=== PATIENT | female | born 1995 | race African-American/Black ===

== ENCOUNTER 2017-09-17 05:58 | Emergency (ER) | payer OTHER ==
--- NOTE | 2017-09-17 06:42 | ED Physician Documentation ---
History of Present Illness - Stated complaint Stated Complaint: ABD CRAMPING - Chief complaint Chief Complaint: Abd Pain - Additonal information Additional information: 4-year-old female presents the emergency department with abdominal cramping. She is on day 4 of her menses and this morning woke from sleep with significant lower abdominal cramping which is not unusual for her, however today she felt shaky, dizzy and felt like her heart was racing. Review of Systems Constitutional: denies: Fever PD PAST MEDICAL HISTORY - Present Medications Home Medications: Ambulatory Orders Medication Instructions Recorded Confirmed No Known Home Medications [No 09/17/17 09/17/17 Known Home Medications] - Allergies Allergies/Adverse Reactions: Allergies Allergy/AdvReac Type Severity Reaction Status Date / Time No Known Drug Allergies Allergy Verified 09/17/17 06:03 PD ED PE NORMAL - Vitals Vital signs reviewed: Yes - General General: Alert and oriented X 3, No acute distress - Cardiac Cardiac: RRR, No murmur - Respiratory Respiratory: Clear bilaterally - Abdomen Abdomen: Normal bowel sounds, Soft, Non tender, Non distended, Other (mild suprapubic ttp ) - Female Female : Drilling Machine Operator present (Marguerite), Other (Mild bleeding in the vaginal vault, Bleeding from cervix, normal-appearing cervix and vagina.) - Derm Derm: Normal color, Warm and dry - Extremities Extremities: No deformity - Neuro Neuro: Alert and oriented X 3 - Psych Psych: Normal mood, Normal affect Results - Vitals Vitals: Vital Signs - 24 hr 09/17/17 06:00 Temperature 36.0 C L Heart Rate 78 Respiratory 16 Rate Blood Pressure 92/61 O2 Saturation 99 Oxygen O2 Source Room air - Labs Labs: Laboratory Tests 09/17/17 09/17/17 06:41 06:41 WBC Cancelled RBC Cancelled Hgb Cancelled Hct Cancelled MCV Cancelled MCH Cancelled MCHC Cancelled RDW Cancelled Plt Count Cancelled MPV Cancelled Serum HCG, Qual NEGATIVE PD MEDICAL DECISION MAKING - ED course ED course: 22-year-old female presents to the emergency department with Menstrual cramping and other associated symptoms. A CBC was checked to ensure that her palpitations and dizziness were not related to anemia. 711 Patient unexpectedly has an elevated white blood cell count of 17, hgb and platelets normal. She also reports that she vomited since arrival in the emergency department, this is not something she has experienced with her regular menstrual cramping in the past. She also continues to have chills. On reexamination patient has more tenderness on her right side than midline or her left side. Awaiting qualitative hCG, Pelvic ultrasound ordered for torsion versus appendicitis given patient's thin body habitus may be able to evaluate the appendix on ultrasound. Discussed with her and family possibility of CT abdomen pelvis if symptoms are not improving and ultrasound unable to Clarify patient's appendix or alternate source of symptoms. Patient's care transitioned to Dr. Valencia pending ultrasound and reassessment. Departure - Departure Clinical Impression: Dysmenorrhea Condition: Good Instructions: ED Bleeding Menstrual Heavy
[2017-09-17] MEDS ORDERED: ONDANSETRON 4 MG/2 ML VIAL IVP STA (07:13)
[2017-09-17] MEDS ORDERED: SODIUM CHLORIDE 0.9% 1,000 ML IV ONE (07:13)
[2017-09-17] MEDS ORDERED: MORPHINE 10 MG/ML VIAL IVP STA (07:20)
[2017-09-17 07:29] LABS: BASOPHILS % (AUTO) 0.2 %; EOSINOPHILS # (AUTO) 0.2 10^3/uL (0.0-0.7); EOSINOPHILS % (AUTO) 1.1 %; LYMPHOCYTES # (AUTO) 1.8 10^3/uL (1.5-3.5); LYMPHOCYTES % (AUTO) 10.5 %; MONOCYTES # (AUTO) 0.7 10^3/uL (0.0-1.0); MONOCYTES % (AUTO) 4.3 %; NEUTROPHILS # (AUTO) 14.6 10^3/uL (1.5-6.6); NEUTROPHILS % (AUTO) 83.9 %; RED BLOOD COUNT 4.88 10^6/uL (4.20-5.40); RED CELL DISTRIBUTION WIDTH 12.7 % (12.0-15.0); UNCORRECTED WHITE BLOOD COUNT 17.4 x10^3/uL; WHITE BLOOD COUNT 17.4 x10^3/uL (4.8-10.8)
[2017-09-17 07:31] LABS: HCT - HEMATOCRIT 44.7 % (37.0-47.0); HGB - HEMOGLOBIN 14.7 g/dL (12.0-16.0); MEAN CORPUSCULAR HEMOGLOBIN 30.2 pg (27.0-31.0); MEAN CORPUSCULAR VOLUME 91.6 fL (81.0-99.0)
[2017-09-17 07:32] LABS: MEAN PLATELET VOLUME 7.4 fL (7.9-10.8)
[2017-09-17] MEDS ORDERED: ONDANSETRON 4 MG/2 ML VIAL ONE (07:32)
[2017-09-17] MEDS ORDERED: MORPHINE 2 MG/ML SYRINGE ONE (07:32)
[2017-09-17 07:38] LABS: ALBUMIN/GLOBULIN RATIO 1.3 (1.0-2.2); BILIRUBIN,TOTAL 0.4 mg/dL (0.2-1.0); CALCIUM 9.6 mg/dL (8.5-10.3); CREATININE 0.8 mg/dL (0.4-1.0); POTASSIUM 3.3 mmol/L (3.5-5.0); TOTAL PROTEIN 8.2 g/dL (6.7-8.2)
--- NOTE | 2017-09-17 09:55 | ED Physician Documentation ---
History of Present Illness - Stated complaint Stated Complaint: ABD CRAMPING - Chief complaint Chief Complaint: Abd Pain - History obtained from History obtained from: Patient PD PAST MEDICAL HISTORY - Past Medical History Past Medical History: No - Past Surgical History Past Surgical History: No - Present Medications Home Medications: Ambulatory Orders Medication Instructions Recorded Confirmed No Known Home Medications [No 09/17/17 09/17/17 Known Home Medications] - Allergies Allergies/Adverse Reactions: Allergies Allergy/AdvReac Type Severity Reaction Status Date / Time No Known Drug Allergies Allergy Verified 09/17/17 06:03 - Social History Does the pt smoke?: No Smoking Status: Never smoker Does the pt drink ETOH?: No Does the pt have substance abuse?: No - Immunizations Immunizations are current?: Yes Results - Vitals Vitals: Vital Signs - 24 hr 09/17/17 09/17/17 06:00 07:47 Temperature 36.0 C L Heart Rate 78 102 H Respiratory 16 16 Rate Blood Pressure 92/61 100/62 O2 Saturation 99 100 Oxygen O2 Source Room air - Labs Labs: Laboratory Tests 09/17/17 09/17/17 09/17/17 06:41 06:41 06:41 WBC Cancelled RBC Cancelled Hgb Cancelled Hct Cancelled MCV Cancelled MCH Cancelled MCHC Cancelled RDW Cancelled Plt Count Cancelled MPV Cancelled Neut # Lymph # [place] # Eos # Baso # Absolute Nucleated RBC Nucleated RBC % Sodium 137 Potassium 3.3 L Chloride 101 Carbon Dioxide 24 Anion Gap 12.0 BUN 13 Creatinine 0.8 Estimated GFR (MDRD) 111 Glucose 125 H Calcium 9.6 Total Bilirubin 0.4 AST 39 ALT 32 Alkaline Phosphatase 62 Total Protein 8.2 Albumin 4.7 Globulin 3.5 Albumin/Globulin Ratio 1.3 Serum HCG, Qual NEGATIVE Urine Color Urine Clarity Urine pH Ur Specific Wilson Urine Protein Urine Glucose (UA) Urine Ketones Urine Occult Blood Urine Nitrite Urine Bilirubin Urine Urobilinogen Ur Leukocyte Esterase Urine RBC Urine WBC Ur Squamous Epith Cells Urine Bacteria Urine Casts Urine Mucus Ur Microscopic Review 09/17/17 09/17/17 06:41 09:40 WBC 17.4 H RBC 4.88 Hgb 14.7 Hct 44.7 MCV 91.6 MCH 30.2 MCHC 33.0 RDW 12.7 Plt Count 296 MPV 7.4 L Neut # 14.6 H Lymph # 1.8 [place] # 0.7 Eos # 0.2 Baso # 0.0 Absolute Nucleated RBC 0.00 Nucleated RBC % 0.0 Sodium Potassium Chloride Carbon Dioxide Anion Gap BUN Creatinine Estimated GFR (MDRD) Glucose Calcium Total Bilirubin AST ALT Alkaline Phosphatase Total Protein Albumin Globulin Albumin/Globulin Ratio Serum HCG, Qual Urine Color YELLOW Urine Clarity CLEAR Urine pH 6.0 Ur Specific Wilson 1.010 Urine Protein NEGATIVE Urine Glucose (UA) NEGATIVE Urine Ketones NEGATIVE Urine Occult Blood LARGE H Urine Nitrite NEGATIVE Urine Bilirubin NEGATIVE Urine Urobilinogen 0.2 (NORMAL) Ur Leukocyte Esterase NEGATIVE Urine RBC 0-5 Urine WBC 0-3 Ur Squamous Epith Cells MOD Squamous H Urine Bacteria Few Urine Casts 3-5 Hyaline Casts Urine Mucus Marked Strands Ur Microscopic Review INDICATED - Rads (name of study) pelvic ultrasound Radiology: Prelim report reviewed (Impression normal normal pelvic ultrasound with Doppler. Nonvisualization of the appendix but no secondary findings of acute appendicitis.), EMP read indepedently, See rad report Departure - Departure Disposition: 01 Home, Self Care Clinical Impression: Dysmenorrhea Condition: Good Instructions: ED Bleeding Menstrual Heavy Follow-Up: MELISSA STEWART [Primary Care Provider] -
[2017-09-17 10:12] LABS: BILIRUBIN,URINE NEGATIVE (NEGATIVE)
[2017-09-17 10:16] LABS: UA w/ MICROSCOPIC CHARGE YES
[2017-09-17 10:33] LABS: WBC,URINE 0-3 /HPF (0-5)
[2017-09-17] MEDS ORDERED: POTASSIUM BICARB 25 MEQ TABLET PO STA (11:12)
[2017-09-17 11:22] VITALS: BP 113/72
--- NOTE | 2017-09-21 16:56 | Ultrasound Report ---
TRANSABDOMINAL AND TRANSVAGINAL PELVIC ULTRASOUND WITH DOPPLER: 09/17/2017 CLINICAL INDICATION: Right lower quadrant pain. TECHNIQUE: Transabdominal pelvic ultrasound performed for global evaluation. Transvaginal pelvic ultrasound performed for detailed evaluation with Doppler. Real-time scanning performed and static images obtained. FINDINGS: The uterus is anteverted, measuring 7.4 x 5.2 x 3.9 cm. The endometrial echo complex measures 8 mm. No focal myometrial lesion is appreciated. The right ovary measures 3.0 x 1.4 x 1.3 cm, and demonstrates normal flow. The left ovary measures 2.7 x 1.5 x 1.5 cm, and demonstrates normal flow. No free fluid is present. Scanning of the right lower quadrant does not demonstrate the appendix. No free fluid or abnormal fluid collection is appreciated. IMPRESSION: NORMAL UTERUS AND OVARIES. NONVISUALIZATION OF THE APPENDIX, BUT NO SECONDARY FINDINGS OF ACUTE APPENDICITIS. TD: 09/17/2017 10:44 [facility]ENTER[facility]aud[facility]
== END 2017-09-17 11:25 | disposition home or self-care (01) ==
LOC: ED 05:58
DX: N94.6 Dysmenorrhea, unspecified (principal); D72.829 Elevated white blood cell count, unspecified
CPT/HCPCS: 36415; 76830; 76856; 80053; 81001; 84703; 85025; 93975; 96361; 96374; 99283; A9270; J2270; 81003

== ENCOUNTER 2017-12-04 13:56 | Outpatient (CLI) | payer OTHER ==
--- NOTE | 2017-12-05 06:41 | MRI Report ---
EXAM: MRI BRAIN WITHOUT CONTRAST EXAM DATE: 12/04/2017 03:04 PM. CLINICAL HISTORY: DIZZINESS AND GIDDINESS. COMPARISON: None. TECHNIQUE: Multiplanar, multisequence T1-weighted and fluid-sensitive MR sequences of the brain were performed. Sequences optimized for routine evaluation. Other: None. IV Contrast: None. FINDINGS: Brain Volume: Normal for age. Parenchyma/Dura: No mass, acute infarct or hemorrhage. No white matter lesions identified. Ventricles/Cisterns: No hydrocephalus. No abnormal extra-axial fluid collection or hemorrhage. Orbits: Symmetric and unremarkable. Sella Turcica: The pituitary gland, cavernous sinuses, suprasellar cistern and optic chiasm are unrem arkable. IAC: Symmetric and unremarkable. Vasculature: Normal signal flow void is seen in the major arterial structures at the skull base. Sinuses: No acute appearing sinus disease. Bones: No focal pathologic appearing marrow signal changes. Other: None. IMPRESSION: 1. Normal brain MRI. [facility] Referring Provider Line: [phone] SITE ID: [id number]
== END 2017-12-04 13:57 | disposition home or self-care (01) ==
LOC: DI 13:56
PROVIDERS: ATTEND Family Medicine
DX: R42 Dizziness and giddiness (principal)
CPT/HCPCS: 70551

== ENCOUNTER 2021-03-26 08:00 | Outpatient (CLI) | payer BC ==
[2021-03-26 13:20] LABS: BASOPHILS % (AUTO) 0.5 %; EOSINOPHILS # (AUTO) 0.2 10^3/uL (0.0-0.7); EOSINOPHILS % (AUTO) 2.8 %; HGB - HEMOGLOBIN 14.7 g/dL (12.0-16.0); LYMPHOCYTES # (AUTO) 2.5 10^3/uL (1.5-3.5); LYMPHOCYTES % (AUTO) 32.7 %; MEAN CORPUSCULAR HEMOGLOBIN 31.3 pg (27.0-31.0); MEAN CORPUSCULAR HGB CONC 32.7 g/dL (32.0-36.0); MEAN CORPUSCULAR VOLUME 95.9 fL (81.0-99.0); MEAN PLATELET VOLUME 9.4 fL (7.9-10.8); MONOCYTES # (AUTO) 0.5 10^3/uL (0.0-1.0); MONOCYTES % (AUTO) 6.3 %; NEUTROPHILS # (AUTO) 4.4 10^3/uL (1.5-6.6); NEUTROPHILS % (AUTO) 57.3 %; PLT - PLATELET COUNT 358 10^3/uL (130-450); RED BLOOD COUNT 4.69 10^6/uL (4.20-5.40); RED CELL DISTRIBUTION WIDTH 12.5 % (12.0-15.0); WHITE BLOOD COUNT 7.6 x10^3/uL (4.8-10.8)
[2021-03-26 13:51] LABS: % IRON SATURATION 14 % (20-50); ALBUMIN 4.2 g/dL (3.2-5.5); ALBUMIN/GLOBULIN RATIO 1.4 (1.0-2.2); ALKALINE PHOSPHATASE 47 IU/L (42-121); ALT ALANINE AMINOTRANSFERASE 13 IU/L (10-60); AST ASPARTATE AMINOTRANSFERASE 16 IU/L (10-42); BILIRUBIN,TOTAL 0.6 mg/dL (0.2-1.0); BUN - BLOOD UREA NITROGEN 16 mg/dL (6-20); CALCIUM 9.6 mg/dL (8.5-10.3); CARBON DIOXIDE - CO2 25 mmol/L (21-32); CHLORIDE 104 mmol/L (101-111); CHOL/HDL RATIO 2.7 (<4.4); CHOLESTEROL 219 mg/dL; CREATININE 0.8 mg/dL (0.4-1.0); GFR - MDRD 107 (>89); GLUCOSE 87 mg/dL (70-100); HDL CHOLESTEROL 80 mg/dL; IRON 70 ug/dL (28-170); LDL CHOLESTEROL,CALCULATED 118 mg/dL; LDL/HDL RATIO 1.5 (<4.4); POTASSIUM 4.1 mmol/L (3.5-5.0); SODIUM 141 mmol/L (135-145); TOTAL IRON BINDING CAPACITY 501 ug/dL (250-450); TOTAL PROTEIN 7.3 g/dL (6.7-8.2); TRANSFERRIN 358 mg/dL (192-382); TRIGLYCERIDES 105 mg/dL; VLDL CHOLESTEROL 21 mg/dL
[2021-03-26 13:58] LABS: THYROID STIMULATING HORMONE 2.43 uIU/mL (0.34-5.60)
[2021-03-26 16:31] LABS: ESTIMATED AVERAGE GLUCOSE 103 mg/dL (70-100); HEMOGLOBIN A1c% 5.2 % (4.27-6.07)
== END 2021-03-26 23:59 | disposition home or self-care (01) ==
LOC: LAB.WCP 08:00
PROVIDERS: ATTEND Family Medicine
DX: Z00.00 Encounter for general adult medical examination without abnormal findings (principal); R25.1 Tremor, unspecified
CPT/HCPCS: 36415; 80053; 80061; 82306; 82607; 82728; 83036; 83540; 83721; 84443; 84466; 85025

== ENCOUNTER 2021-06-03 08:55 | Outpatient (CLI) | payer BC ==
[2021-06-09 02:36] LABS: NIL 0.03 IU/mL
== END 2021-06-03 23:59 | disposition home or self-care (01) ==
LOC: LAB.WCP 08:55
PROVIDERS: ATTEND Family Medicine
DX: Z20.1 Contact with and (suspected) exposure to tuberculosis (principal)
CPT/HCPCS: 86480; 86787

== ENCOUNTER 2022-02-18 08:00 | Outpatient (CLI) | payer BC ==
[2022-02-18 06:14] LABS: BASOPHILS # (AUTO) 0.1 10^3/uL (0.0-0.1); BASOPHILS % (AUTO) 0.6 %; EOSINOPHILS # (AUTO) 0.2 10^3/uL (0.0-0.7); EOSINOPHILS % (AUTO) 1.9 %; HCT - HEMATOCRIT 37.7 % (37.0-47.0); HGB - HEMOGLOBIN 13.1 g/dL (12.0-16.0); LYMPHOCYTES # (AUTO) 2.3 10^3/uL (1.5-3.5); LYMPHOCYTES % (AUTO) 22.7 %; MEAN CORPUSCULAR HEMOGLOBIN 31.9 pg (27.0-31.0); MEAN CORPUSCULAR HGB CONC 34.7 g/dL (32.0-36.0); MEAN CORPUSCULAR VOLUME 91.7 fL (81.0-99.0); MEAN PLATELET VOLUME 9.1 fL (7.9-10.8); MONOCYTES # (AUTO) 0.7 10^3/uL (0.0-1.0); MONOCYTES % (AUTO) 6.6 %; NEUTROPHILS # (AUTO) 6.7 10^3/uL (1.5-6.6); NEUTROPHILS % (AUTO) 67.8 %; PLT - PLATELET COUNT 298 10^3/uL (130-450); RED BLOOD COUNT 4.11 10^6/uL (4.20-5.40); RED CELL DISTRIBUTION WIDTH 12.3 % (12.0-15.0); WHITE BLOOD COUNT 9.9 x10^3/uL (4.8-10.8)
[2022-02-19 06:11] LABS: HBsAG SCREEN Negative (Negative); HCV AB <0.1 s/co ratio (0.0-0.9); HIV SCREEN 4TH GENERATION Non Reactive (Non Reactive)
[2022-02-19 07:10] LABS: RPR Non Reactive (Non Reactive)
[2022-02-19 10:10] LABS: VARICELLA-ZOSTER AB IGG 270 index (Immune >165)
== END 2022-02-18 23:59 | disposition home or self-care (01) ==
LOC: LAB 08:00
PROVIDERS: ATTEND Obstetrics & Gynecology
DX: Z36.89 Encounter for other specified antenatal screening (principal)
CPT/HCPCS: 36415; 85025; 86592; 86762; 86787; 86803; 86850; 86900; 86901; 87340; 87389

== ENCOUNTER 2022-03-06 08:00 | Outpatient (CLI) | payer BC ==
[2022-03-06 23:19] LABS: CHLAMYDIA TRACHOMATIS DNA NEGATIVE (NEGATIVE); NEISSERIA GONORRHOEAE DNA NEGATIVE (NEGATIVE); TRICHOMONAS VAGINALIS DNA NEGATIVE (NEGATIVE)
== END 2022-03-06 23:59 | disposition home or self-care (01) ==
LOC: LAB.R 08:00
PROVIDERS: ATTEND Obstetrics & Gynecology
DX: Z11.3 Encounter for screening for infections with a predominantly sexual mode of transmission (principal)
CPT/HCPCS: 87491; 87591; 87661

== ENCOUNTER 2022-06-26 08:00 | Outpatient (CLI) | payer BC ==
[2022-06-26 02:07] LABS: HCT - HEMATOCRIT 34.6 % (37.0-47.0); HGB - HEMOGLOBIN 12.1 g/dL (12.0-16.0); MEAN CORPUSCULAR HEMOGLOBIN 32.4 pg (27.0-31.0); MEAN CORPUSCULAR VOLUME 92.8 fL (81.0-99.0); MEAN PLATELET VOLUME 9.1 fL (7.9-10.8); RED BLOOD COUNT 3.73 10^6/uL (4.20-5.40); RED CELL DISTRIBUTION WIDTH 13.1 % (12.0-15.0); WHITE BLOOD COUNT 10.5 x10^3/uL (4.8-10.8)
== END 2022-06-26 23:59 | disposition home or self-care (01) ==
LOC: LAB 08:00
PROVIDERS: ATTEND Obstetrics & Gynecology
DX: Z34.90 Encounter for supervision of normal pregnancy, unspecified, unspecified trimester (principal); Z36.89 Encounter for other specified antenatal screening
CPT/HCPCS: 36415; 82950; 85027

== ENCOUNTER 2022-09-03 14:00 | Outpatient (CLI) | payer BC | END 2022-09-03 23:59 | disposition home or self-care (01) | LOC: LAB.WC 14:00 | PROVIDERS: ATTEND Obstetrics & Gynecology | DX: Z36.85 Encounter for antenatal screening for Streptococcus B (principal) | CPT/HCPCS: 87797 ==

== ENCOUNTER 2022-09-23 08:28 | Outpatient (CLI) | payer BC ==
[2022-09-23 08:48] VITALS: BP 120/78
--- NOTE | 2022-09-23 14:09 | PROVIDER PROGRESS NOTE ---
- HPI Chief Complaint: Labor Check Current : Current EDU 09/29/22 Gestation 39 Weeks and 1 Days 1 Para 0 Vital Signs Temperature 97.9 F 09/23/22 08:41 Heart Rate 67 09/23/22 08:41 Respiratory Rate 16 09/23/22 08:41 Blood Pressure 120/78 09/23/22 08:41 Temperature 97.9 F 09/23/22 12:00 Heart Rate 67 09/23/22 12:00 Respiratory Rate 16 09/23/22 12:00 Blood Pressure 120/78 09/23/22 12:00 O2 Saturation If not protocol: Oxygen Flow, liters/minute - Procedures OB Procedure Performed: NST NST Procedure: NST Procedure Start Date 09/23/22 Start Time 08:40 Stop Time 09:12 Vibroacoustic Stimulation Used No Patient States Movement Yes - Plan Plan: Patient is a 27-year-old G1, P0 at 39 weeks 1 day gestation presenting today for contractions that started this morning. These began becoming consistent, approximately 5 minutes apart. She has no leaking or bleeding. She did have a small what appeared to be blood clot or mucus, some blood, but no brett bleeding. Exam Physical Constitutional: alert, no acute distress, well hydrated, well developed, well nourished, appropriate dress. Cardiovascular: Regular rate and rhythm. Respiratory: no respiratory distress. Abdomen: nondistended, nontender, no guarding. Psych: affect and mood appropriate, normal interaction, good eye contact. FHT: 130 beats per baseline, moderate variability, accelerations present, no decelerations. Reactive NST [place]: 4 to 7 minutes. SVE: Assessment and plan 39 weeks gestation -Will follow-up with routine care Contractions not in labor: -Membrane swept today. No significant change, but discussed that she is in an active labor. This can last for hours to days, so encouraged patient to go home and rest as she waited more painful contractions. Suggested coming back if contractions get closer together, she notices a significant change in contraction strength, or if she experiences rupture membranes. -Discharged with labor precautions .
== END 2022-09-23 11:55 | disposition home or self-care (01) ==
LOC: WFO 08:28 → FBP 08:30 → WFO 11:55
PROVIDERS: ATTEND Obstetrics & Gynecology
DX: Z34.03 Encounter for supervision of normal first pregnancy, third trimester (principal)
CPT/HCPCS: 59025; 99214

== ENCOUNTER 2022-09-23 17:21 | Inpatient (IN) | payer BC ==
[2022-09-23] MEDS ORDERED: LABETALOL 20 MG/4 ML SYRINGE IVP PRN ×3 (17:51)
[2022-09-23] MEDS ORDERED: OXYTOCIN/SODIUM CHLORIDE 500 ML IV PRN (17:51)
[2022-09-23] MEDS ORDERED: SODIUM CHLORIDE FLUSH 0.9% 10 ML SYRINGE IVP PRN (17:51)
[2022-09-23] MEDS ORDERED: METHYLERGONOVINE 0.2 MG/ML VIAL IM PRN (17:51)
[2022-09-23] MEDS ORDERED: miSOPROStoL 200 MCG TABLET PR PRN (17:51)
[2022-09-23] MEDS ORDERED: fentaNYL 100 MCG/2 ML VIAL IVP PRN (17:51)
[2022-09-23] MEDS ORDERED: hydrALAZINE INJ 20 MG/ML VIAL IVP PRN ×2 (17:51)
[2022-09-23] MEDS ORDERED: CARBOPROST TROMETHAMINE 250 MCG/ML AMP IM PRN (17:51)
[2022-09-23] MEDS ORDERED: OXYTOCIN 10 UNIT/ML VIAL IM PRN (17:51)
[2022-09-23] MEDS ORDERED: lidocaine 1% 20 ML MDV ID PRN (17:51)
[2022-09-23] MEDS ORDERED: TRANEXAMIC ACID IN NACL 1,000 MG/100 ML BAG IV PRN (17:51)
[2022-09-23] MEDS ORDERED: miSOPROStoL 200 MCG TABLET BC PRN (17:51)
[2022-09-23] MEDS ORDERED: TERBUTALINE 1 MG/ML VIAL SUBQ PRN (17:51)
[2022-09-23] MEDS ORDERED: NIFEdipine 10 MG CAPSULE PO PRN (17:51)
--- NOTE | 2022-09-23 17:51 | HISTORY & PHYSICAL EXAMINATION ---
Admit History - Visit Reason Visit Reason: Contractions - : 1 Parity: 0 Care: positive: [facility] Risk/History: positive: None Complications This : positive: None Smoking Status: Never smoker - Mother's Labs Mother's Blood Type: positive: O Mother's RH: positive: Positive GBS: positive: Group B Strep Positive Rubella Status: positive: Immune - Other Maternal History Other Maternal History: HPI: 27-year-old G1, P1 at 39 weeks 1 day patient by LMP consistent with 8-week ultrasound presenting for contractions. She has good movement. Denies loss of fluid. No ARNETT/BV or RUQP. No vaginal bleeding. Denies nausea and vomiting. Denies urinary urgency or dysuria. All other symptoms reviewed and were negative except per HPI. Course LMP: 12/23/2021 ERAN by LMP: 09/29/2022 Initial U/S: 02/20/2022 at 8w3d c/w LMP (09/26/2022) FINAL ERAN: 09/29/2022 Pre- weight: 106 BMI: 21.29 O+/immune VZV: immune Genetic testing: Declined FAS:[facility]- 05/05/22- EFW 301g 55th%ile, 3VC, placenta posterior w/o previa, GREER 13.3cm Glucola:87 COVID: #1: 10/2020; #2: 11/2020 Influenza: 07/06/2022 TDAP:07/06/2022 GBS @ 36.2 wks- positive HSV: Denies any self or partner Breast pump Rx: vendor document given at Confirmation MOD: anticipate pp contraception:OCPs previously pap: 10/09/2020 Normal; Negative GCCT PMH Corneal degeneration PSH Denies previous surgeries OB History SH Denies tobacco, alcohol, drugs Family History Father: Hypertension Maternal grandmother: Diabetes Allergies No known drug allergy Medications vitamins Physical exam: General: Alert, oriented, no acute distress Head: Normal cephalic atraumatic Eyes: PERRLA, extraocular motions intact. Respiratory: Normal rate of respiration. No accessory muscle use, normal respiratory effort. Cardiovascular: Regular rate and rhythm Abdomen: Gravid, nontender, nondistended Extremities: Normal range of motion Neuro: Oriented x3. Normal movements Psych: Appropriate mood and affect. Normal judgment and insight SVE: 530/-2 FHT: 145 bpm baseline, moderate variability, accelerations present, no decelerations. Category 1 [place]: 2 to 4 minutes Plan 27-year-old at 39 weeks 1 day gestation presenting to labor and delivery in term labor 1. Term labor -Admit to L&D, labs, epidural at patient's request, anticipate AROM, anticipate 2. 39 weeks gestation 3. GBS positive -Plan for ampicillin for GBS sepsis prophylaxis Meds/Allgy - Home Medications Home Medications: Ambulatory Orders Medication Instructions Recorded Confirmed No Known Home Medications 09/17/17 09/17/17 - Allergies Allergies/Adverse Reactions: Allergies Allergy/AdvReac Type Severity Reaction Status Date / Time No Known Drug Allergies Allergy Verified 09/23/22 18:05 Plan for Labor - Plan For Labor I expect patient to be DC'd or transferred within 96 hours.: Yes
[2022-09-23] MEDS ORDERED: SODIUM CHLORIDE FLUSH 0.9% 10 ML SYRINGE IVP SCH (18:00)
[2022-09-23] MEDS ORDERED: LACTATED RINGERS 1,000 ML ONE (18:17)
[2022-09-23] MEDS ORDERED: AMPICILLIN 2 GM in SODIUM CHLORIDE 0.9% MINIBAG 100 ML IV ONE (18:30)
[2022-09-23 19:27] LABS: BASOPHILS % (AUTO) 0.2 %; EOSINOPHILS % (AUTO) 0.2 %; HCT - HEMATOCRIT 39.1 % (37.0-47.0); HGB - HEMOGLOBIN 13.5 g/dL (12.0-16.0); LYMPHOCYTES # (AUTO) 1.4 10^3/uL (1.5-3.5); LYMPHOCYTES % (AUTO) 10.2 %; MEAN CORPUSCULAR HEMOGLOBIN 31.8 pg (27.0-31.0); MEAN CORPUSCULAR HGB CONC 34.5 g/dL (32.0-36.0); MEAN PLATELET VOLUME 9.8 fL (7.9-10.8); MONOCYTES # (AUTO) 0.7 10^3/uL (0.0-1.0); MONOCYTES % (AUTO) 4.8 %; NEUTROPHILS # (AUTO) 11.8 10^3/uL (1.5-6.6); NEUTROPHILS % (AUTO) 83.7 %; PLT - PLATELET COUNT 282 10^3/uL (130-450); RED BLOOD COUNT 4.25 10^6/uL (4.20-5.40); WHITE BLOOD COUNT 14.2 x10^3/uL (4.8-10.8)
[2022-09-23] MEDS: LACTATED RINGERS 1,000 ML IV SCH ×2 (19:34→22:12)
[2022-09-23] MEDS ORDERED: ROPIVACAINE 0.2% 200 MG/100 ML BAG EP ONE (20:17)
[2022-09-23] MEDS ORDERED: METOCLOPRAMIDE 10 MG/2 ML VIAL IVP PRN (21:04)
[2022-09-23] MEDS ORDERED: diphenhydrAMINE INJ 50 MG/ML VIAL IVP PRN (21:04)
[2022-09-23] MEDS ORDERED: ePHEDrine 50 MG/ML VIAL IVP PRN (21:04)
[2022-09-23] MEDS ORDERED: NALBUPHINE 10 MG/ML AMP IVP PRN (21:04)
[2022-09-23] MEDS ORDERED: NALOXONE 0.4 MG/ML VIAL IVP PRN (21:04)
[2022-09-23] MEDS ORDERED: ROPIVACAINE 0.2% 200 MG/100 ML BAG EP PRN (21:04)
--- NOTE | 2022-09-23 21:11 | ANESTHESIA ---
Pre-Anesthesia VS, & Labs - Diagnosis term labor, IUP - Procedure epidural for vaginal delivery Vital Signs: Temp Pulse Resp BP Pulse Ox O2 Flow Rate 36.9 C 87 18 09/23/22 18:09 09/23/22 18:09 09/23/22 18:09 Height: 4 ft 11 in Weight (kg): 62.142 kg Body Mass Index: 27.6 BMI Classification: Overweight - NPO Last Fluid Intake: t/o day Last Food Intake: full lunch - Is Patient ?: Yes - Lab Results Current Lab Results: Laboratory Tests 09/23/22 19:00: WBC 14.2 H, RBC 4.25, Hgb 13.5, Hct 39.1, MCV 92.0, MCH 31.8 H, MCHC 34.5, RDW 13.0, Plt Count 282, MPV 9.8, Neut # (Auto) 11.8 H, Lymph # (Auto) 1.4 L, Sch[place] # (Auto) 0.7, Eos # (Auto) 0.0, Baso # (Auto) 0.0, Absolute Nucleated RBC 0.00, Nucleated RBC % 0.0 09/23/22 19:00: Blood Type O POSITIVE, Antibody Screen NEGATIVE Lab results reviewed: Yes Fish Bones: 09/23/22 19:00 Home Medications and Allergies Active Medications Carboprost Tromethamine (Carboprost Tromethamine 250 Mcg/Ml Amp) 250 mcg IM .ONCE PRN PRN Reason: Hemorrhage Diphenhydramine HCl (Diphenhydramine Inj 50 Mg/Ml Vial) 12.5 - 25 mg IVP Q6HR PRN PRN Reason: ITCHING Ephedrine Sulfate (Ephedrine 50 Mg/Ml Vial) 5 mg IVP Q5M PRN PRN Reason: For SBP<100;give until SBP>100 Fentanyl (Fentanyl 100 Mcg/2 Ml Vial) 50 mcg IVP Q1H PRN PRN Reason: Severe Pain (score 7-10) Hydralazine HCl (Hydralazine Inj 20 Mg/Ml Vial) 10 mg IVP .ONCE PRN; Protocol PRN Reason: SBP> or= 160 OR DBP> or= 110 Hydralazine HCl (Hydralazine Inj 20 Mg/Ml Vial) 5 - 10 mg IVP Q20M PRN; Protocol PRN Reason: SBP> or= 160 OR DBP> or= 110 Oxytocin/Sodium Chloride (Pitocin/Sodium Chloride) 500 mls @ 999 mls/hr IV PRN PRN; Protocol PRN Reason: POST- HEMORR PREVENTION Tranexamic Acid (Tranexamic 1,000 Mg/100ml-Nacl) 1,000 mg in 100 mls @ 600 mls/hr IV Q30M PRN PRN Reason: EBL >1200mL and within 3hr Ampicillin Sodium 1 gm/ Sodium (Chloride) 100 mls @ 200 mls/hr IV Q4HR ARDEN Lactated Ringer's (Lr) 1,000 mls @ 125 mls/hr IV .Q8H ARDEN Last Admin: 09/23/22 19:34 Dose: 125 mls/hr Ropivacaine (Naropin 0.2%) 200 mg in 100 mls @ 0 mls/hr EP PRN PRN; Protocol PRN Reason: PAIN Labetalol HCl (Labetalol 20 Mg/4 Ml Syringe) 20 mg IVP .ONCE PRN; Protocol PRN Reason: SBP> or= 160 OR DBP> or= 110 Labetalol HCl (Labetalol 20 Mg/4 Ml Syringe) 20 - 80 mg IVP Q10M PRN; Protocol PRN Reason: SBP> or= 160 OR DBP> or= 110 Labetalol HCl (Labetalol 20 Mg/4 Ml Syringe) 20 - 40 mg IVP Q10M PRN; Protocol PRN Reason: SBP> or= 160 OR DBP> or= 110 Lidocaine HCl (Lidocaine 1% 20 Ml Mdv) 20 ml ID .ONCE PRN PRN Reason: PERINEAL REPAIR Stop: 09/26/22 17:51 Methylergonovine Maleate (Methylergonovine 0.2 Mg/Ml Vial) 0.2 mg IM .ONCE PRN PRN Reason: Hemorrhage Metoclopramide HCl (Metoclopramide 10 Mg/2 Ml Vial) 10 mg IVP Q6HR PRN PRN Reason: Nausea / Vomiting Misoprostol (Misoprostol 200 Mcg Tablet) 600 mcg BC .ONCE PRN PRN Reason: Hemorrhage Misoprostol (Misoprostol 200 Mcg Tablet) 800 mcg PA .ONCE PRN PRN Reason: Hemorrhage Nalbuphine HCl (Nalbuphine 10 Mg/Ml Amp) 2.5 - 5 mg IVP Q4H PRN PRN Reason: ITCHING Naloxone HCl (Naloxone 0.4 Mg/Ml Vial) 0.1 mg IVP Q2M PRN PRN Reason: RR<8 Nifedipine (Nifedipine 10 Mg Capsule) 10 - 20 mg PO Q20M PRN; Protocol PRN Reason: SBP> or= 160 OR DBP> or= 110 Ondansetron HCl (Ondansetron 4 Mg/2 Ml Vial) 4 mg IVP Q6HR PRN PRN Reason: Nausea / Vomiting Oxytocin (Oxytocin 10 Unit/Ml Vial) 10 unit IM .ONCE PRN PRN Reason: Step One if no IV access. Sodium Chloride (Sodium Chloride Flush 0.9% 10 Ml Syringe) 10 ml IVP Q8H ARDEN Sodium Chloride (Sodium Chloride Flush 0.9% 10 Ml Syringe) 10 ml IVP PRN PRN PRN Reason: NEEDED PER PROVIDER ORDERS Terbutaline Sulfate (Terbutaline 1 Mg/Ml Vial) 0.25 mg SUBQ .ONCE PRN PRN Reason: Tachystole No Known Home Medications 09/17/17 Allergies/Adverse Reactions: Allergies Allergy/AdvReac Type Severity Reaction Status Date / Time No Known Drug Allergies Allergy Verified 09/23/22 18:05 Anes History & Medical History - Anesthetic History Anesthesia Complications: reports: No previous complications Family history of Anesthesia Complications: Denies Family history of Malignant Hyperthermia: Denies - Medical History Cardiovascular: reports: None Pulmonary: reports: None Urinary: reports: None Smoking Status: Never smoker Psychosocial: reports: No issues indicated History of Cancer?: No - Surgical History Eyes Ears Nose Throat (EENT): reports: Tonsil/Adenoidectomy - Obstetrical History : 1 Parity: 0 Events: reports: None Complications: reports: None Exam General: Alert, Oriented x3, Cooperative Dental: WNL Mouth Openin Fingerbreadth Neck Mobility: Normal Mallampati classification: II Thyromental Distance: 4-6 cm Respiratory: No respiratory distress Cardiovascular: Regular rate Neurological: Normal speech Mental/Cognitive Status: Alert/Oriented X3, Normal for patient Cognitive Status: Within normal limits Plan Anesthesia Type: Epidural Consent for Procedure(s) Verified and Reviewed: Yes Code Status: Attempt Resuscitation ASA classification: 2-Mild systemic disease Is this case an emergency?: No
[2022-09-23] MEDS: ONDANSETRON 4 MG/2 ML VIAL IVP PRN (22:47)
[2022-09-23] MEDS: AMPICILLIN 1 GM in SODIUM CHLORIDE 0.9% MINIBAG 100 ML IV SCH (23:55)
--- NOTE | 2022-09-24 00:14 | PROVIDER PROGRESS NOTE ---
Labor Progress Note - Uterine Monitoring Uterine Monitoring Mode: positive: External toco Contraction Frequency (min/apart): 4 Contraction Intensity: positive: Moderate to strong Uterine Resting Tone: positive: Soft - Monitoring Monitor Mode: positive: External ultrasound Heart Rate Baseline: 140 Heart Rate Variability: positive: Moderate (6-25 bmp) Accelerations: positive: Present, 15x15 Decelerations: positive: None Strip Review: positive: Category I - Vaginal Exam Dilation (in cm): 9 Effacement (%): 100 Station: -1 - Labor Progress Note Labor Progress Note/Additional Text: Patient has progressed on her own, but minimal change since last check a little over 3 hours ago. Artificial rupture membranes was discussed with patient and she agreed. Small amount of heavily stained meconium fluid was noted. heart tracing remains category 1. We will reassess at next check and start oxytocin if unchanged.
[2022-09-24] MEDS ORDERED: CALCIUM CARBONATE CHEW 500 MG TABLET PO PRN (03:18)
[2022-09-24] MEDS: AMPICILLIN 1 GM in SODIUM CHLORIDE 0.9% MINIBAG 100 ML IV SCH ×3 (03:42→22:33)
[2022-09-24] MEDS ORDERED: DEXTROSE 5%-LACTATED RINGERS 1,000 ML IV SCH (03:49)
[2022-09-24] MEDS ORDERED: DEXTROSE 5%-LACTATED RINGERS 1,000 ML IV ONE (03:56)
[2022-09-24] MEDS: ONDANSETRON 4 MG/2 ML VIAL IVP PRN (04:25)
[2022-09-24] MEDS ORDERED: OXYTOCIN/SODIUM CHLORIDE 500 ML IV SCH (05:05)
--- NOTE | 2022-09-24 06:50 | DELIVERY NOTE ---
Delivery Note - Labor Labor: positive: Augmented by oxytocin - Delivery Method Delivery Method: positive: Vacuum assist - Nuchal Cord Nuchal Cord: positive: Present (Loose) - Anesthetic Anesthetic Type: - Amniotic Fluid Description Amniotic Fluid Description: positive: Thick meconium - Vacuum Use Indication for Vacuum Use: positive: Prolonged 2nd stage, Shortening of 2nd stage for maternal benefit Type of Vacuum Cup: positive: Cup: Rigid Number of pop-offs: 0 - Episiotomy Type Episiotomy Type: positive: None - Laceration Laceration: positive: 3rd degree - Suture Suture Type: positive: Vicryl Suture Size: positive: 2-0, 3-0 - Delivery Outcome Delivery Outcome: positive: Livebirth - [place]: positive: Placed in direct skin contact with mother, Stimulated, Warmed, [place] used sex: positive: Male - Cord Cord: positive: 3 vessels - Placenta Placenta: positive: Intact - Estimated Blood Loss Estimated Blood Loss (in cc): 600 - Post Delivery Events Post Delivery Events: positive: No post delivery events - Delivery Comments (Free Text/Narrative) Delivery Comments (Free Text/Narrative): Preoperative Diagnoses 39 weeks gestation Term labor GBS positive Thick meconium Postoperative Diagnoses Same Status post vacuum-assisted vaginal delivery Delivery of live evans History: Patient was a 27-year-old G1, P0 at 39 weeks gestation upon presentation. She had early labor earlier the day of admission, and was tommie throughout the day. On arrival, she was 5 cm and was admitted for labor. She labor on her own until 8 cm and requested an epidural. At 9 cm, AROM was performed at 0003. She continued to progress on her own until checked and found to be complete at 0201. Delivery team was called and pushed and began at 0243. Patient had overall reassuring heart tracing throughout, but had occasional periods of minimal variability and occasional variable deceleration. At 2 hours of pushing, patient was counseled on vacuum-assisted vaginal delivery noting the benefits for decreasing the length of the second stage as well as for maternal exhaustion. As patient was pushing well and making slow but steady descent, additional hour of pushing was performed. At the 3-hour karlee, vacuum-assisted vaginal delivery was again recommended, and the patient agreed as she also felt like she was nearing exhaustion. Fetus then began having deep variable and occasional late decelerations. The fetus was noted to be in VAL position at +3 station, but with a moderate amount of caput. Delivery Summary: The patient was counseled on the risk of vacuum delivery. We discussed a trial of vacuum delivery with no significant descent we would proceed with section. We discussed that we would give up if no descent occurred after 2 tractions, if delivery did not occur after 4 tractions or if the vacuum detached more than twice. We discussed the risk of cephalhematoma, hemorrhage, nerve injuries, bruises, elevated bilirubin, as well as maternal issues of soft tissue injuries. We discussed that traction alone cannot deliver the baby, we can only assist maternal pushing efforts. The flexion point was identified 3 cm anterior of the posterior fontanelle. The fetus was at +3 station Patient was in dorsolithotomy position. Upon maternal pushing, the vacuum was initiated at 0552. Using gentle traction in the trajectory of the head the head maternal pushing efforts made good descent with pushing. In between, patient had no contractions but variable decelerations. On the second contraction, using similar vacuum assistance, the head delivered. There was a loose nuchal cord, but the remainder of the delivered quickly and easily so the cord was not reduced. A male infant was delivered at 0604 with APGARS of 8 at 1 minute and 9 at 5 minutes. The was placed on its mother's chest . After the cord finished pulsating, the umbilical cord was clamped times two and cut. The was examined for bruising and none was noted. The placenta delivered intact with three vessel cord. Placenta was not sent to pathology. Thirty units of Pitocin were added to the IV fluid and allowed to run freely. Uterine massage was performed until uterus was deemed firm. Upon inspection of the perineum, a 3-A midline laceration and left sulcal laceration was noted. Using 2-0 Vicryl, 4 interrupted sutures were placed to reinforce the capsule and surrounding tissue. A 2-0 Vicryl was used in a running fashion from the apex down the perineum in the usual fashion to repair the second-degree tear. A running suture was used to repair the sulcal tear. Upon re-inspection the patient was hemostatic. Uterus again massaged and found to be firm. Needle and sponge counts were correct. Patient was stable and allowed to recover in L&D room. was stable and remained in room with mother. weight is pending at this time.
[2022-09-24] MEDS: LACTATED RINGERS 1,000 ML IV SCH (06:56)
[2022-09-24] MEDS ORDERED: SIMETHICONE CHEW 80 MG TABLET PO PRN (07:16)
[2022-09-24 07:18] LABS: HCT - HEMATOCRIT 28.4 % (37.0-47.0); HGB - HEMOGLOBIN 9.6 g/dL (12.0-16.0)
[2022-09-24] MEDS ORDERED: LACTATED RINGERS 1,000 ML IV SCH (08:00)
[2022-09-24] MEDS: IBUPROFEN 600 MG TABLET PO SCH ×3 (08:20→21:00)
[2022-09-24] MEDS: ACETAMINOPHEN 500 MG TABLET PO SCH ×2 (08:20→16:25)
[2022-09-24] MEDS: DOCUSATE SODIUM 100 MG CAPSULE PO PRN ×2 (08:20→21:01)
[2022-09-24] MEDS ORDERED: CALCIUM CARBONATE CHEW 500 MG TABLET PO SCH (09:00)
[2022-09-24] MEDS ORDERED: LIDOCAINE 2% URO-JET 5 ML SYRINGE UR ONE (16:02)
[2022-09-25] MEDS: ACETAMINOPHEN 500 MG TABLET PO SCH ×4 (00:27→16:14)
[2022-09-25] MEDS: IBUPROFEN 600 MG TABLET PO SCH ×3 (02:57→16:02)
[2022-09-25] MEDS: DOCUSATE SODIUM 100 MG CAPSULE PO PRN (08:37)
--- NOTE | 2022-09-25 15:02 | Discharge Plan ---
Discharge Plan Problem Reviewed?: Yes Disposition: Home, Self Care Condition: Good Prescriptions: Acetaminophen [Acetaminophen Extra Strength] 1,000 mg PO Q8H PRN #60 tablet PRN Reason: Pain Docusate Sodium 100Mg Capsule [Colace 100Mg Capsule] 100 - 200 mg PO BID PRN #60 cap PRN Reason: Constipation Ibuprofen [Motrin] 600 mg PO Q6H PRN #30 tab PRN Reason: Pain Diet: Regular Activity Restrictions: Pelvic rest 6 weeks Shower Restrictions: No Driving Restrictions: No (May drive when comfortable enough to operate POV) Weight Bearing: Full Weight Instruction Topics: Vaginal After, Depression , Additional Instructions or Follow Up instructions: Follow up in [facility] as scheduled or by 2 weeks . No Smoking: If you smoke, Please STOP! Call for help. Follow-up with: Van Sifuentes MD [Provider Admit Priv/Credential] -
--- NOTE | 2022-09-25 15:07 | DISCHARGE SUMMARY ---
"Discharge Summary Admit Date: 09/23/22 Discharge Date: 09/25/22 Discharging Provider: Mimi Gonzalez DO Code Status: Attempt Resuscitation Condition at Discharge: Good Discharge Disposition: 01 Home, Self Care Discharge Facility Name: [facility] - DIAGNOSES Admission Diagnoses: Active labor 39 weeks - HPI History of Present Illness: 27yo at 39.1 presented in active labor on 09/23/22. She was admitted. - CONSULTS | PROCEDURES Consultations: Anesthesia Procedures: AROM Pitocin augmentation Epidural GBS antibiotics prophylaxis Repair of 3a laceration - HOSPITAL COURSE Hospital Course: 27yo at 39.1 presented in active labor on 09/23/22. She was admitted. GBS prophylaxis with antibiotics. AROM, meconium. Pitocin augmentation. Received epidural. VAVD 09/24/22 due to maternal exhaustion. 3a laceration repaired. She was unable to void so Lam catheter replaced. Recovering appropriately. Lam removed and voided PPD#1. Discharged PPD#1 on 09/25/22. Reviewed care, , blues. Follow up as scheduled in or by 2 weeks . All questions answered. - ALLERGIES Allergies/Adverse Reactions: Allergies Allergy/AdvReac Type Severity Reaction Status Date / Time No Known Drug Allergies Allergy Verified 09/23/22 18:05 - MEDICATIONS Home Medications: Ambulatory Orders Medication Instructions Recorded Confirmed Acetaminophen [Acetaminophen Extra 1,000 mg PO Q8H PRN #60 tablet 09/24/22 Strength] Docusate Sodium 100Mg Capsule 100 - 200 mg PO BID PRN #60 cap 09/24/22 [Colace 100Mg Capsule] Ibuprofen [Motrin] 600 mg PO Q6H PRN #30 tab 09/24/22 - PHYSICAL EXAM AT DISCHARGE General Appearance: positive: No acute distress Eyes Bilateral: positive: EOMI Respiratory: positive: No respiratory distress Abdomen: positive: Other (Fundus firm) Skin: positive: Color nml Extremities: positive: Non-tender Neurologic/Psychiatric: positive: Oriented x3 - LABS Result Diagrams: 09/24/22 07:02 - QUALITY (Female Hip Fx Only) Was patient sent home on osteoporosis medication?: No - FOLLOW UP Follow Up: As scheduled in [facility] or by 2 weeks - TIME SPENT Time Spent in Discharge (Minutes): 30"
[2022-09-25 15:43] VITALS: BP 105/60
--- NOTE | 2022-09-25 18:35 | Labor Flowsheet ---
Labor Flowsheet Datetime Report Generated by CPN: 09/25/2022 18:34 Datetime: 09/25/2022 15:38 VITAL SIGNS NBP Sys/Jeaneth/Mean (mmHg): 105 : 60 : 70 Pulse: 84 Datetime: 09/25/2022 08:24 SpO2 (%): 100 Datetime: 09/24/2022 08:31 Stage of : Datetime: 09/24/2022 08:00 Respirations: 16 Datetime: 09/24/2022 06:30 Anesthesia Comments: Pump stopped Datetime: 09/24/2022 06:16 Temperature (C): 36.9 Datetime: 09/24/2022 06:08 MEDICATIONS Pitocin (milliunits): Increased to @ (Annotations: 999) Datetime: 09/24/2022 06:07 Stage 2 Comments: placenta delivered Datetime: 09/24/2022 06:04 STAGE 2 Pushing: Coached on Pushing Pushing Position: Pushing with Contractions; Pushing Lithotomy Pushing Progress: Descent with Pushing; with Pushing; Pushing Effectively with Contraction s LaborFlag: Labor Datetime: 09/24/2022 05:59 UTERINE ACTIVITY Monitor Mode: Palpation Frequency (min): 1-2 Quality: Moderate Duration (sec): 50-110 Pattern: Normal: <= 5 Contractions in 10 Minutes Resting Tone (Palpate): Relaxed ASSESSMENT A Monitor Mode: External US FHR Baseline Rate : 150 FHR Baseline Changes: No Baseline Change Variability: Minimal - Undetectable to <=5 bpm Accelerations: None Decelerations: Variable Category: Category II Comments: Post vaccuum assist #1, decel variables were noted with pushing during contractions. Datetime: 09/24/2022 05:52 Vacuum: On Station Vacuum/Forceps Applied: +3 Datetime: 09/24/2022 05:49 Patient Position/Activity: HOB Lowered Datetime: 09/24/2022 05:33 Antiemetics/Antacids: Reglan 10 mg IV Medication Comments: increase of pitocin ordered by Dr. Sifuentes Datetime: 09/24/2022 04:53 Station: 2 Datetime: 09/24/2022 04:46 Epidural Procedure Other: Pump Started Datetime: 09/24/2022 04:45 Actions for Decelerations: Provider Notified COMMUNICATION Communication: Provider at Bedside Datetime: 09/24/2022 04:30 I/O Interventions: Straight Cath (ml) @ 150 Patient Care Comments: Gross Hematuria Datetime: 09/24/2022 03:56 PATIENT CARE IV/Blood Work: IV Infusing per Order (Annotations: D5LR @125 ML/HR) Datetime: 09/24/2022 03:42 Antibiotics: Ampicillin IV 1 Gm Datetime: 09/24/2022 03:15 Communication Comments: Provider reviewed strip Datetime: 09/24/2022 02:30 Monitor Interventions for UA: [place] Adjusted Datetime: 09/24/2022 02:17 Monitor Interventions for FHR: Ultrasound Adjusted Datetime: 09/24/2022 02:01 VAGINAL EXAM Dilatation (cm): 10.0 Effacement (%): 100 Exam by: Molly Alcaraz RN Datetime: 09/24/2022 01:49 Temperature Route: Oral Anesthesia Level Check: T10- Umbilicus Datetime: 09/24/2022 00:30 Contraction Comments: unable to trace Datetime: 09/24/2022 00:03 Membrane Status: Ruptured Membranes Rupture Method: Artificial Amniotic Fluid Color: moderate to thick mec Amniotic Fluid Amount: Small Datetime: 09/23/2022 23:34 PAIN Pain Scale: 0 Pain Presence: None/Denies Pain Type: N/A Pain Relief Measures: Epidural Given Pain Coping: Talking Through Contractions Datetime: 09/23/2022 23:30 Vaginal Bleeding: Normal Show Notification Reason: Labor Status Datetime: 09/23/2022 21:22 Cervix, Consistency: Soft Cervix, Position: Midposition Datetime: 09/23/2022 20:40 Epidural Procedure: Completed Datetime: 09/23/2022 20:25 ANESTHESIA Anesthesia Plans: Epidural Epidural Positioning: Sitting
== END 2022-09-25 18:07 | disposition home or self-care (01) | DRG 768 ==
LOC: WFO 17:21 → FBP 17:38 → WFO 17:50 → FBP 17:51
PROVIDERS: ADMIT Obstetrics & Gynecology; ATTEND Obstetrics & Gynecology
PROC: 10D07Z6 Extraction of Products of Conception, Vacuum, Via Natural or Artificial Opening (ICD-10-PCS; principal; 2022-09-24)
PROC: 0DQR0ZZ Repair Anal Sphincter, Open Approach (ICD-10-PCS; 2022-09-24)
PROC: 10907ZC Drainage of Amniotic Fluid, Therapeutic from Products of Conception, Via Natural or Artificial Opening (ICD-10-PCS; 2022-09-24)
DX: O99.824 Streptococcus B carrier state complicating childbirth (principal); Z37.0 Single live birth; O63.1 Prolonged second stage (of labor); O70.21 Third degree perineal laceration during delivery, IIIa; O75.81 Maternal exhaustion complicating labor and delivery; O69.81X0 Labor and delivery complicated by cord around neck, without compression, not applicable or unspecified; O76 Abnormality in fetal heart rate and rhythm complicating labor and delivery; O77.0 Labor and delivery complicated by meconium in amniotic fluid; Z3A.39 39 weeks gestation of pregnancy
CPT/HCPCS: 36415; 59025; 85014; 85018; 85025; 86850; 86900; 86901; 99214; 99215; A9270; J2765; J7120

== ENCOUNTER 2023-02-06 09:34 | Outpatient (CLI) | payer BC ==
[2023-02-06 20:02] LABS: BASOPHILS # (AUTO) 0.1 10^3/uL (0.0-0.1); BASOPHILS % (AUTO) 0.9 %; EOSINOPHILS # (AUTO) 0.2 10^3/uL (0.0-0.7); EOSINOPHILS % (AUTO) 3.9 %; HCT - HEMATOCRIT 40.6 % (37.0-47.0); HGB - HEMOGLOBIN 11.7 g/dL (12.0-16.0); LYMPHOCYTES # (AUTO) 1.7 10^3/uL (1.5-3.5); LYMPHOCYTES % (AUTO) 30.2 %; MEAN CORPUSCULAR HEMOGLOBIN 23.6 pg (27.0-31.0); MEAN CORPUSCULAR HGB CONC 28.8 g/dL (32.0-36.0); MEAN PLATELET VOLUME 9.7 fL (7.9-10.8); MONOCYTES # (AUTO) 0.4 10^3/uL (0.0-1.0); MONOCYTES % (AUTO) 7.3 %; NEUTROPHILS # (AUTO) 3.2 10^3/uL (1.5-6.6); NEUTROPHILS % (AUTO) 57.5 %; PLT - PLATELET COUNT 451 10^3/uL (130-450); RED BLOOD COUNT 4.95 10^6/uL (4.20-5.40); RED CELL DISTRIBUTION WIDTH 18.4 % (12.0-15.0); WHITE BLOOD COUNT 5.6 x10^3/uL (4.8-10.8)
[2023-02-06 20:41] LABS: ALBUMIN/GLOBULIN RATIO 1.2 (1.0-2.2); ALKALINE PHOSPHATASE 53 IU/L (42-121); ALT ALANINE AMINOTRANSFERASE 12 IU/L (10-60); AST ASPARTATE AMINOTRANSFERASE 18 IU/L (10-42); BILIRUBIN,TOTAL 0.3 mg/dL (0.2-1.0); BUN - BLOOD UREA NITROGEN 14 mg/dL (6-20); CARBON DIOXIDE - CO2 25 mmol/L (21-32); CHLORIDE 108 mmol/L (101-111); CHOL/HDL RATIO 3.1 (<4.4); CHOLESTEROL 205 mg/dL; CREATININE 0.6 mg/dL (0.4-1.0); GFR - MDRD 146 (>89); GLUCOSE 84 mg/dL (70-100); HDL CHOLESTEROL 67 mg/dL; LDL CHOLESTEROL,CALCULATED 119 mg/dL; LDL/HDL RATIO 1.8 (<4.4); SODIUM 138 mmol/L (135-145); TOTAL PROTEIN 7.4 g/dL (6.7-8.2); TRIGLYCERIDES 97 mg/dL; VLDL CHOLESTEROL 19 mg/dL
[2023-02-06 20:44] LABS: PLATELET ESTIMATE, MANUAL INCREASED (>450,000) (NORMAL); PLATELET MORPHOLOGY NORMAL APPEARANCE (NORMAL); SLIDE REVIEW? Indicated
[2023-02-06 21:06] LABS: ESTIMATED AVERAGE GLUCOSE 120 mg/dL (70-100); HEMOGLOBIN A1c% 5.8 % (4.27-6.07)
== END 2023-02-06 09:35 | disposition home or self-care (01) ==
LOC: LAB.N 09:34
PROVIDERS: ATTEND Physician Assistant
DX: E55.9 Vitamin D deficiency, unspecified (principal); Z13.9 Encounter for screening, unspecified; Z13.220 Encounter for screening for lipoid disorders
CPT/HCPCS: 36415; 80053; 80061; 82306; 83036; 83721; 84443; 85025

== ENCOUNTER 2023-08-18 17:57 | Outpatient (CLI) | payer BC | END 2023-08-18 17:58 | disposition home or self-care (01) | LOC: LAB.N 17:57 | PROVIDERS: ATTEND Obstetrics & Gynecology | DX: Z32.01 Encounter for pregnancy test, result positive (principal) | CPT/HCPCS: 36415; 84702 ==

== ENCOUNTER 2023-08-21 14:43 | Outpatient (CLI) | payer BC | END 2023-08-21 14:44 | disposition home or self-care (01) | LOC: LAB.N 14:43 | PROVIDERS: ATTEND Obstetrics & Gynecology | DX: Z32.01 Encounter for pregnancy test, result positive (principal) | CPT/HCPCS: 36415; 84702 ==

== ENCOUNTER 2023-08-31 18:02 | Outpatient (CLI) | payer BC ==
--- NOTE | 2023-09-01 13:06 | Ultrasound Report ---
PROCEDURE: OB First Trimester INDICATIONS: POSITIVE TEST OUTSIDE/PRIOR DATING DATA: Last menstrual period (LMP): 07/11/2023. LMP-based estimated date of delivery (ERAN): 04/26/2024. First dating scan (date and location): 08/31/2023. Estimated date of delivery (ERAN) from first dating scan: . TECHNIQUE: Real-time scanning was performed of the fetus and maternal pelvic organs, with image documentation. COMPARISON: None. FINDINGS: Intrauterine gestational sac present. Yolk sac is also seen. Embryo: [place]-rump length measures 0.4 cm. Estimated gestational age is 6 weeks, 1 day. Heart rate: 104 bpm. Other: There is a small subchorionic hemorrhage measures 1.7 x 0.8 x 1.9 cm in size. Measurement variability in dating: +/- 4 weeks by LMP, +/- 7 days by mean sac diameter (use before 6 weeks gestation if crown-rump length not able to be measured), +/- 5 days by crown-rump length (6-12 weeks gestation). Maternal organs: Ovaries appear within normal limits. Left corpus luteal cyst measures 2.4 x 2 x 1.7 cm in size. IMPRESSION: 1. Single live intrauterine gestation with fetus and yolk sac seen. heart rate is 104 bpm. Savanah mated gestational age is 6 weeks, 1 day. 2. Small subchorionic hemorrhage as above. 3. Left-sided corpus luteal cyst as above. Reviewed by: Aurelio Buitrago MD on 09/01/2023 1:05 PM PST Approved by: Aurelio Buitrago MD on 09/01/2023 1:05 PM PST Station ID: [id number]
== END 2023-08-31 18:03 | disposition home or self-care (01) ==
LOC: DI 18:02
PROVIDERS: ATTEND Obstetrics & Gynecology
DX: O20.8 Other hemorrhage in early pregnancy (principal); O34.81 Maternal care for other abnormalities of pelvic organs, first trimester; N83.12 Corpus luteum cyst of left ovary; Z3A.01 Less than 8 weeks gestation of pregnancy

== ENCOUNTER 2023-09-03 08:00 | Outpatient (CLI) | payer BC ==
[2023-09-03 16:03] LABS: BILIRUBIN,URINE NEGATIVE (NEGATIVE); GLUCOSE, URINE (UA) NEGATIVE (NEGATIVE); KETONES,URINE (UA) NEGATIVE (NEGATIVE); LEUKOCYTE ESTERASE, URINE NEGATIVE (NEGATIVE); NITRITE,URINE NEGATIVE (NEGATIVE); OCCULT BLOOD,URINE NEGATIVE (NEGATIVE); PROTEIN,URINE NEGATIVE (NEGATIVE); UROBILINOGEN,URINE 0.2 (NORMAL) E.U./dL (NORMAL)
[2023-09-03 16:10] LABS: CLARITY,URINE CLEAR (CLEAR)
[2023-09-03 16:30] LABS: AMORPHOUS SEDIMENT,UR Few /LPF; BACTERIA,URINE Rare /HPF (None Seen); RBC,URINE 0-5 /HPF (0-5); SQUAMOUS EPITHELIAL CELL,UR MANY Squamous (<= Few); WBC,URINE 0-3 /HPF (0-5)
== END 2023-09-03 23:59 | disposition home or self-care (01) ==
LOC: LAB.WC 08:00
PROVIDERS: ATTEND Nurse Practitioner
DX: Z34.80 Encounter for supervision of other normal pregnancy, unspecified trimester (principal)
CPT/HCPCS: 81001; 87086

== ENCOUNTER 2023-09-23 14:23 | Outpatient (CLI) | payer BC ==
[2023-09-23 17:52] LABS: BASOPHILS % (AUTO) 0.3 %; EOSINOPHILS # (AUTO) 0.1 10^3/uL (0.0-0.7); EOSINOPHILS % (AUTO) 1.4 %; HCT - HEMATOCRIT 40.1 % (37.0-47.0); HGB - HEMOGLOBIN 13.2 g/dL (12.0-16.0); LYMPHOCYTES % (AUTO) 21.1 %; MEAN CORPUSCULAR HEMOGLOBIN 29.3 pg (27.0-31.0); MEAN CORPUSCULAR HGB CONC 32.9 g/dL (32.0-36.0); MEAN CORPUSCULAR VOLUME 89.1 fL (81.0-99.0); MONOCYTES # (AUTO) 0.6 10^3/uL (0.0-1.0); NEUTROPHILS # (AUTO) 6.7 10^3/uL (1.5-6.6); NEUTROPHILS % (AUTO) 70.9 %; PLT - PLATELET COUNT 323 10^3/uL (130-450); RED CELL DISTRIBUTION WIDTH 13.2 % (12.0-15.0); WHITE BLOOD COUNT 9.5 x10^3/uL (4.8-10.8)
[2023-09-24 03:10] LABS: HIV SCREEN 4TH GENERATION Non Reactive (Non Reactive)
[2023-09-24 04:08] LABS: RPR Non Reactive (Non Reactive)
[2023-09-24 05:12] LABS: HBsAG SCREEN Negative (Negative); HCV AB Non Reactive (Non Reactive)
[2023-09-24 08:10] LABS: VARICELLA-ZOSTER AB IGG 418 index (Immune >165)
== END 2023-09-23 14:24 | disposition home or self-care (01) ==
LOC: LAB.N 14:23
PROVIDERS: ATTEND Nurse Practitioner
DX: Z34.80 Encounter for supervision of other normal pregnancy, unspecified trimester (principal); Z36.89 Encounter for other specified antenatal screening
CPT/HCPCS: 36415; 85025; 86592; 86762; 86787; 86803; 86850; 86900; 86901; 87340; 87389

== ENCOUNTER 2023-10-11 08:00 | Outpatient (CLI) | payer BC ==
[2023-10-11 18:20] LABS: CHLAMYDIA TRACHOMATIS DNA NEGATIVE (NEGATIVE); NEISSERIA GONORRHOEAE DNA NEGATIVE (NEGATIVE); TRICHOMONAS VAGINALIS DNA NEGATIVE (NEGATIVE)
== END 2023-10-11 23:59 | disposition home or self-care (01) ==
LOC: LAB.WC 08:00
PROVIDERS: ATTEND Obstetrics & Gynecology
DX: Z11.3 Encounter for screening for infections with a predominantly sexual mode of transmission (principal)
CPT/HCPCS: 87491; 87591; 87661

== ENCOUNTER 2023-12-09 16:51 | Outpatient (CLI) | payer BC ==
--- NOTE | 2023-12-10 13:24 | Ultrasound Report ---
PROCEDURE: OB Anatomy Scan INDICATIONS: SUPERVISION OF OUTSIDE/PRIOR DATING DATA: Last menstrual period (LMP): 07/11/2023. LMP-based estimated date of delivery (ERAN): 04/26/2024. First dating scan (date and location): 08/31/2023. Estimated date of delivery (ERAN) from first dating scan: 04/24/2024. The below data below was generated using the clinical ERAN of 04/26/2024 TECHNIQUE: Real-time scanning was performed of the fetus, with image documentation and biometric measurements. Endovaginal scanning: Not performed. COMPARISON: 08/31/2023 FINDINGS: General: A single living intrauterine gestation is present. Presentation: Vertex Placenta: Placental position is posterior, without previa. Amniotic fluid index: 13.1 cm, within normal limits for gestational age. heart rate: 140 beats per minute. Maternal cervical canal: 4.6 cm long; normal length is 2.5 cm or more. biometrics: Biparietal diameter: 5.1 cm, 21 weeks 2 days, 90% Head circumference: 18.2 cm, 20 weeks 4 days, 63% Abdominal circumference: 16.7 cm, 20 weeks 5 days, 89% Femur length: 3.3 cm, 20 weeks 1 day, 43% Estimated gestational age from initial scan: 20 weeks 1 day Composite gestational age from present scan: 20 weeks 6 days Estimated weight and percentile: 392 g, 88th percentile Measurement variability in biometric dating: +/- 10 days from 12-20 weeks gestation, +/- 2 weeks from 20-30 weeks gestation, +/- 3 weeks at 30 weeks gestation or later. Anatomic survey: Neuro: Ventricles are normal at less than 10 mm. Cisterna magna is normal at 3-11 mm. Cerebellum i s normal in size and morphology. Nuchal skin fold: Normal at less than 6 mm between 14 and 20 weeks gestational age. Face: Nose and lips, facial profile are normal. Spine: No evidence for spina bifida. Heart: 4-chambered heart is present, with normal ventricular outflow tracts. Diaphragm: Diaphragm is intact. Stomach: Left-sided stomach is present. Kidneys: No hydronephrosis. Normal is less than 5 mm in 2nd trimester, less than 7 mm in 3rd trimester. Cord: 3 vessel cord has orthotopic insertion. Bladder: Normal in size. Extremities: All 4 extremities are visualized. IMPRESSION: 1.Single live intrauterine consistent with 20 weeks and 6 days. 2.Normal anatomic survey. Reviewed by: Enrique Lino MD on 12/10/2023 1:23 PM PST Approved by: Enrique Lino MD on 12/10/2023 1:23 PM PST Station ID: [id number]
== END 2023-12-09 16:52 | disposition home or self-care (01) ==
LOC: DI 16:51
PROVIDERS: ATTEND Nurse Practitioner
DX: Z34.82 Encounter for supervision of other normal pregnancy, second trimester (principal); Z36.89 Encounter for other specified antenatal screening

== ENCOUNTER 2024-02-03 16:58 | Outpatient (CLI) | payer BC ==
[2024-02-03 20:24] LABS: HCT - HEMATOCRIT 35.3 % (37.0-47.0); HGB - HEMOGLOBIN 11.6 g/dL (12.0-16.0); MEAN CORPUSCULAR HEMOGLOBIN 31.5 pg (27.0-31.0); MEAN CORPUSCULAR HGB CONC 32.9 g/dL (32.0-36.0); MEAN CORPUSCULAR VOLUME 95.9 fL (81.0-99.0); MEAN PLATELET VOLUME 9.8 fL (7.9-10.8); RED BLOOD COUNT 3.68 10^6/uL (4.20-5.40); RED CELL DISTRIBUTION WIDTH 12.8 % (12.0-15.0); WHITE BLOOD COUNT 9.2 x10^3/uL (4.8-10.8)
== END 2024-02-03 16:59 | disposition home or self-care (01) ==
LOC: LAB.N 16:58
PROVIDERS: ATTEND Obstetrics & Gynecology
DX: Z34.80 Encounter for supervision of other normal pregnancy, unspecified trimester (principal)
CPT/HCPCS: 36415; 82950; 85027

== ENCOUNTER 2024-03-30 08:00 | Outpatient (CLI) | payer BC | END 2024-03-30 23:59 | disposition home or self-care (01) | LOC: LAB.WC 08:00 | PROVIDERS: ATTEND Obstetrics & Gynecology | DX: Z36.85 Encounter for antenatal screening for Streptococcus B (principal) | CPT/HCPCS: 87081; 87797 ==

== ENCOUNTER 2024-04-13 23:34 | Inpatient (IN) | payer BC ==
[2024-04-14] MEDS ORDERED: SODIUM CHLORIDE FLUSH 0.9% 10 ML SYRINGE IVP PRN (00:57)
[2024-04-14] MEDS ORDERED: ONDANSETRON ODT 4 MG TABLET PO PRN (00:57)
[2024-04-14] MEDS ORDERED: ONDANSETRON 4 MG/2 ML VIAL IVP PRN ×2 (00:57→07:16)
[2024-04-14] MEDS ORDERED: miSOPROStoL 200 MCG TABLET PR PRN (00:57)
[2024-04-14] MEDS ORDERED: CARBOPROST TROMETHAMINE 250 MCG/ML VIAL IM PRN (00:57)
[2024-04-14] MEDS ORDERED: CALCIUM CARBONATE CHEW 500 MG TABLET PO PRN ×2 (00:57→07:16)
[2024-04-14] MEDS ORDERED: lidocaine 1% 20 ML MDV ID PRN (00:57)
[2024-04-14] MEDS ORDERED: hydrALAZINE INJ 20 MG/ML VIAL IVP PRN ×2 (00:57)
[2024-04-14] MEDS ORDERED: NIFEdipine 10 MG CAPSULE PO PRN (00:57)
[2024-04-14] MEDS ORDERED: miSOPROStoL 200 MCG TABLET BC PRN (00:57)
[2024-04-14] MEDS ORDERED: METHYLERGONOVINE 0.2 MG/ML VIAL IM PRN (00:57)
[2024-04-14] MEDS ORDERED: TRANEXAMIC ACID IN NACL 1,000 MG/100 ML BAG IV PRN (00:57)
[2024-04-14] MEDS ORDERED: TERBUTALINE 1 MG/ML VIAL SUBQ PRN (00:57)
[2024-04-14] MEDS ORDERED: LABETALOL 20 MG/4 ML SYRINGE IVP PRN ×3 (00:57)
[2024-04-14] MEDS ORDERED: ACETAMINOPHEN 500 MG TABLET PO PRN (00:57)
[2024-04-14] MEDS ORDERED: OXYTOCIN 10 UNIT/ML VIAL IM PRN (00:57)
[2024-04-14] MEDS ORDERED: SODIUM CHLORIDE FLUSH 0.9% 10 ML SYRINGE IVP SCH (01:00)
[2024-04-14] MEDS: AMPICILLIN 2 GM in SODIUM CHLORIDE 0.9% MINIBAG 100 ML IV ONE (01:24)
[2024-04-14] MEDS: LACTATED RINGERS 1,000 ML IV PRN (01:25)
[2024-04-14] MEDS: fentaNYL 100 MCG/2 ML VIAL IVP PRN (01:33)
[2024-04-14 01:57] LABS: BASOPHILS % (AUTO) 0.4 %; EOSINOPHILS % (AUTO) 1.4 %; HCT - HEMATOCRIT 34.3 % (37.0-47.0); LYMPHOCYTES % (AUTO) 33.1 %; MEAN CORPUSCULAR HEMOGLOBIN 31.7 pg (27.0-31.0); MEAN CORPUSCULAR VOLUME 90.7 fL (81.0-99.0); MEAN PLATELET VOLUME 9.6 fL (7.9-10.8); NEUTROPHILS % (AUTO) 58.1 %; PLT - PLATELET COUNT 275 10^3/uL (130-450); RED BLOOD COUNT 3.78 10^6/uL (4.20-5.40); RED CELL DISTRIBUTION WIDTH 13.6 % (12.0-15.0); WHITE BLOOD COUNT 8.4 x10^3/uL (4.8-10.8)
[2024-04-14 02:15] LABS: ABNORMAL LYMPHS % (MANUAL) 0 %; BAND NEUTROPHILS % (MANUAL) 0 %
[2024-04-14 02:38] LABS: ALBUMIN 3.4 g/dL (3.2-5.5); BILIRUBIN,TOTAL 0.3 mg/dL (0.2-1.0); CALCIUM 9.3 mg/dL (8.5-10.3); CREATININE 0.6 mg/dL (0.6-1.3); TOTAL PROTEIN 6.7 g/dL (6.4-8.9)
[2024-04-14] MEDS ORDERED: ROPIVACAINE 0.2% 200 MG/100 ML BAG EP PRN (02:41)
[2024-04-14] MEDS ORDERED: NALOXONE 0.4 MG/ML VIAL IVP PRN (02:41)
[2024-04-14] MEDS ORDERED: ePHEDrine 50 MG/ML VIAL IVP PRN (02:41)
--- NOTE | 2024-04-14 02:41 | ANESTHESIA ---
Pre-Anesthesia VS, & Labs - Diagnosis active labor - Procedure vaginal delivery Vital Signs: Temp Pulse Resp BP Pulse Ox O2 Flow Rate 36.7 C 65 16 99/54 L 98 04/14/24 01:56 04/14/24 01:20 04/14/24 01:20 04/14/24 01:20 04/13/24 23:55 Height: 4 ft 11 in Weight (kg): 62.777 kg Body Mass Index: 27.9 BMI Classification: Overweight - NPO Other (clear liqids) - Is Patient ?: Yes - Lab Results Current Lab Results: Laboratory Tests 04/14/24 01:05: Sodium 137, Potassium 4.0, Chloride 108, Carbon Dioxide 21, Anion Gap 8.0, BUN 9, Creatinine 0.6, Estimated GFR (MDRD) 145, Glucose 85, Calcium 9.3, Total Bilirubin 0.3, AST 24, ALT 18, Alkaline Phosphatase 148 H, Total Protein 6.7, Albumin 3.4, Globulin 3.3, Albumin/Globulin Ratio 1.0 04/14/24 01:05: WBC 8.4, RBC 3.78 L, Hgb 12.0, Hct 34.3 L, MCV 90.7, MCH 31.7 H, MCHC 35.0, RDW 13.6, Plt Count 275, MPV 9.6 Lab results reviewed: Yes Fish Bones: 04/14/24 01:05 04/14/24 01:05 Home Medications and Allergies Active Medications Acetaminophen (Acetaminophen 500 Mg Tablet) 1,000 mg PO Q8HR PRN PRN Reason: Mild Pain or Fever>38C(100.4F) Calcium Carbonate/Glycine (Calcium Carbonate Chew 500 Mg Tablet) 1,000 mg PO Q6HR PRN PRN Reason: Heartburn Carboprost Tromethamine (Carboprost Tromethamine 250 Mcg/Ml Vial) 250 mcg IM .ONCE PRN PRN Reason: Hemorrhage Fentanyl (Fentanyl 100 Mcg/2 Ml Vial) 50 mcg IVP Q1H PRN PRN Reason: Severe Pain (score 7-10) Last Admin: 04/14/24 01:33 Dose: 100 mcg Hydralazine HCl (Hydralazine Inj 20 Mg/Ml Vial) 5 - 10 mg IVP Q20M PRN; Protocol PRN Reason: SBP> or= 160 OR DBP> or= 110 Hydralazine HCl (Hydralazine Inj 20 Mg/Ml Vial) 10 mg IVP .ONCE PRN; Protocol PRN Reason: SBP> or= 160 OR DBP> or= 110 Lactated Ringer's (Lr) 500 mls @ 999 mls/hr IV PRN PRN PRN Reason: Abdominal Pain Last Admin: 04/14/24 01:25 Dose: 999 mls/hr Oxytocin/Sodium Chloride (Pitocin/Sodium Chloride) 500 mls @ 999 mls/hr IV PRN PRN; Protocol PRN Reason: POST- HEMORR PREVENTION Tranexamic Acid (Tranexamic 1,000 Mg/100ml-Nacl) 1,000 mg in 100 mls @ 600 mls/hr IV Q30M PRN PRN Reason: EBL >1200mL and within 3hr Ampicillin Sodium 1 gm/ Sodium (Chloride) 100 mls @ 200 mls/hr IV Q4H [place] Labetalol HCl (Labetalol 20 Mg/4 Ml Syringe) 20 - 80 mg IVP Q10M PRN; Protocol PRN Reason: SBP> or= 160 OR DBP> or= 110 Labetalol HCl (Labetalol 20 Mg/4 Ml Syringe) 20 mg IVP .ONCE PRN; Protocol PRN Reason: SBP> or= 160 OR DBP> or= 110 Labetalol HCl (Labetalol 20 Mg/4 Ml Syringe) 20 - 40 mg IVP Q10M PRN; Protocol PRN Reason: SBP> or= 160 OR DBP> or= 110 Lidocaine HCl (Lidocaine 1% 20 Ml Mdv) 20 ml ID .ONCE PRN PRN Reason: PERINEAL REPAIR Stop: 04/17/24 00:57 Methylergonovine Maleate (Methylergonovine 0.2 Mg/Ml Vial) 0.2 mg IM .ONCE PRN PRN Reason: Hemorrhage Misoprostol (Misoprostol 200 Mcg Tablet) 600 mcg BC .ONCE PRN PRN Reason: Hemorrhage Misoprostol (Misoprostol 200 Mcg Tablet) 800 mcg VT .ONCE PRN PRN Reason: Hemorrhage Nifedipine (Nifedipine 10 Mg Capsule) 10 - 20 mg PO Q20M PRN; Protocol PRN Reason: SBP> or= 160 OR DBP> or= 110 Ondansetron HCl (Ondansetron Odt 4 Mg Tablet) 4 mg PO Q4HR PRN PRN Reason: Nausea / Vomiting Ondansetron HCl (Ondansetron 4 Mg/2 Ml Vial) 4 mg IVP PRN PRN PRN Reason: Nausea / Vomiting Oxytocin (Oxytocin 10 Unit/Ml Vial) 10 unit IM .ONCE PRN PRN Reason: Step One if no IV access. Sodium Chloride (Sodium Chloride Flush 0.9% 10 Ml Syringe) 10 ml IVP PRN PRN PRN Reason: NEEDED PER PROVIDER ORDERS Sodium Chloride (Sodium Chloride Flush 0.9% 10 Ml Syringe) 10 ml IVP Q8H [place] Terbutaline Sulfate (Terbutaline 1 Mg/Ml Vial) 0.25 mg SUBQ .ONCE PRN PRN Reason: Tachystole Allergies/Adverse Reactions: Allergies Allergy/AdvReac Type Severity Reaction Status Date / Time No Known Drug Allergies Allergy Verified 09/23/22 18:05 Anes History & Medical History - Anesthetic History Anesthesia Complications: reports: No previous complications - Medical History Cardiovascular: reports: None Pulmonary: reports: None Gastrointestinal: reports: None Urinary: reports: None Neuro: reports: None Musculoskeletal: reports: None Endocrine/Autoimmune: reports: None Blood Disorders: reports: None Skin: reports: None Smoking Status: Never smoker Psychosocial: reports: No issues indicated - Surgical History Eyes Ears Nose Throat (EENT): reports: Tonsil/Adenoidectomy - Obstetrical History : 2 Parity: 1 Events: reports: None Complications: reports: None Exam General: Alert, Oriented x3, Cooperative, No acute distress Dental: WNL Mouth Openin Fingerbreadth Neck Mobility: Normal Mallampati classification: II Thyromental Distance: 4-6 cm Mental/Cognitive Status: Alert/Oriented X3, Normal for patient Plan Anesthesia Type: Epidural Consent for Procedure(s) Verified and Reviewed: Yes Code Status: Attempt Resuscitation ASA classification: 2-Mild systemic disease Is this case an emergency?: No
[2024-04-14 02:46] LABS: BASOPHILS # (MANUAL) 0.1 10^3/uL (0-0.1); BASOPHILS % (MANUAL) 1 %; DIFFERENTIAL COMMENT MANUAL DIFFERENTIAL; LYMPHOCYTES # (MANUAL) 2.3 10^3/uL (1.5-3.5); LYMPHOCYTES % (MANUAL) 27 %; MONOCYTES # (MANUAL) 0.2 10^3/uL (0.0-1.0); NEUTROPHILS # (MANUAL) 5.9 10^3/uL (1.5-6.6); PLATELET ESTIMATE, MANUAL NORMAL (130-450,000) (NORMAL); RBC MORPHOLOGY (MULTIPLE) NORMAL APPEARANCE (NORMAL)
--- NOTE | 2024-04-14 04:03 | HISTORY & PHYSICAL EXAMINATION ---
Admit History - Smoking Status: Never smoker - Other Maternal History Other Maternal History: HPI: Nataly is a 29 yo at 38w2d who is admitted in labor. She reports painful contractions starting around 8pm. Denies LOF, VB. + FM. No ARNETT, vision changes, CP, SOB. In triage, was found to be 4cm (change from 1cm) and was admitted for labor. She is now comfortable with epidural. course: LMP: 07/21/2023 ERAN by LMP: 04/26/2024 08/23/2023, 6 weeks 1 day gestation, ERNA by ultrasound: 04/22/2024 Final ERAN 04/26/2024: History of vacuum-assisted vaginal delivery: After 3 hours of pushing and maternal exhaustion History of 3A midline laceration Pre- Weight: 103 lb BMI: 20.57 Blood type: O+ Rh: positive Antibody: negative CBC: PLT 323 HCT 40.1 HGB 13.2 RUB: immune VZV: immune HBsAg: negative HepC: N-R RPR/AB-EIA: N-R HIV: N-R PAP: last 10/2020- negative GC/CT: 10/11 negative HSV: denies Genetic testing: declines Covid:vaccinated Flu:received this season FAS: 12/09/2023 Placenta: Posterior Cord: 3VC GREER: 13.1 cm EFW: 392g; 88th%tile 50gm OGCT: 126 TDAP:02/09 Breast Pump: formula feeding 3rd trimester H/H 11.6/35.3 PLT 289 GBS: POSITIVE Delivery plan: Contraception: Done childbearing. Likely partner vasectomy. Medical Hx: corneal degeneration Surgical Hx: corneal surgery RECYCLING SORTER Hx: , VAVD x 1 Social Hx: No alcohol, tobacco, drug use Family Hx: non-contributory Allergies: NKDA Meds: PNV PE: Gen: NAD Chest: non labored respirations Abd: gravid, non tender, EFW 3200-2400g Ext: no LE edema, no evidence of DVT SVE: most recent SVE per RN exam monitoring: FHTs: 130s bpm baseline, + accel, - decel, mod variability [place]: 1-4 min Labs: reviewed A/P: 29 yo at 38w2d: - Active labor - GBS positive - Rh+ - Rubella immune - H/o VAVD, 3a perineal lac - Expectant managment for now. Discussed possible AROM. - Comfortable with epidural - Continue ampicillin for GBS prophylaxis - HPI Current EDU 04/26/24 Gestation 38 Weeks and 2 Days 2 Vital Signs Temperature 98.2 F 04/13/24 23:55 Heart Rate 65 04/13/24 23:55 Respiratory Rate 16 04/13/24 23:55 Blood Pressure 99/54 L 04/13/24 23:55 O2 Saturation 98 04/13/24 23:55 Temperature 98.1 F 04/14/24 01:56 Heart Rate 65 04/14/24 01:20 Respiratory Rate 16 04/14/24 01:20 Blood Pressure 99/54 L 04/14/24 01:20 O2 Saturation 98 04/13/24 23:55 If not protocol: Oxygen Flow, liters/minute - NST Procedure NST Procedure Start Time 08:40 Stop Time 09:12 Meds/Allgy - Home Medications Home Medications: Ambulatory Orders Medication Instructions Recorded Confirmed Acetaminophen [Acetaminophen Extra 1,000 mg PO Q8H PRN #60 tablet 09/24/22 Strength] Docusate Sodium 100Mg Capsule 100 - 200 mg PO BID PRN #60 cap 09/24/22 [Colace 100Mg Capsule] Ibuprofen [Motrin] 600 mg PO Q6H PRN #30 tab 09/24/22 - Allergies Allergies/Adverse Reactions: Allergies Allergy/AdvReac Type Severity Reaction Status Date / Time No Known Drug Allergies Allergy Verified 09/23/22 18:05 Physical - Abdominal Exam Vital Signs: Temp Pulse Resp BP Pulse Ox O2 Flow Rate 98.1 F 65 16 99/54 L 98 04/14/24 01:56 04/14/24 01:20 04/14/24 01:20 04/14/24 01:20 04/13/24 23:55 Plan for Labor - Plan For Labor I expect patient to be DC'd or transferred within 96 hours.: Yes
[2024-04-14] MEDS: AMPICILLIN 1 GM in SODIUM CHLORIDE 0.9% MINIBAG 100 ML IV SCH (05:26)
--- NOTE | 2024-04-14 05:47 | MISCELLANEOUS PROVIDER NOTE ---
Miscellaneous Provider Note - - Note: I went to bedside for SVE, AROM. 2 intermittent deep variable decelerations noted prior to exam. AROM performed with patient consent with light meconium stained fluid. SVE complete, + 2 station. Patient repositioned. Plan to labor down x 30 min if FHTs will allow, FHTs overall reassuring.
[2024-04-14] MEDS: OXYTOCIN/SODIUM CHLORIDE 500 ML IV PRN (07:00)
[2024-04-14] MEDS ORDERED: SIMETHICONE CHEW 80 MG TABLET PO PRN (07:16)
[2024-04-14] MEDS ORDERED: DOCUSATE SODIUM 100 MG CAPSULE PO PRN (07:16)
--- NOTE | 2024-04-14 07:20 | DELIVERY NOTE ---
Delivery Note - Labor Labor: positive: Spontaneous, Augmented by ARM - Infant Delivery Method Delivery Method: positive: Spontaneous vaginal delivery - Presentation Presentation: positive: OA - occiput anterior - Nuchal Cord Nuchal Cord: positive: Reduced - Amniotic Fluid Description Amniotic Fluid Description: positive: Light meconium - Vacuum Use Indication for Vacuum Use: positive: Suspicion of immediate or potential compromise Type of Vacuum Cup: positive: Cup: Rigid - Laceration Laceration: positive: 2nd degree - Suture Suture Type: positive: Vicryl Suture Size: positive: 3-0 - Delivery Outcome Delivery Outcome: positive: Livebirth - [place]: positive: Placed in direct skin contact with mother, [place] used sex: positive: Female - Cord Cord: positive: 3 vessels - Placenta Placenta: positive: Intact - Estimated Blood Loss Estimated Blood Loss (in cc): 350 - Post Delivery Events Post Delivery Events: positive: No post delivery events - Delivery Comments (Free Text/Narrative) Delivery Comments (Free Text/Narrative): Preoperative Diagnoses Term labor Category 2 tracing Postoperative Diagnoses Status post vacuum-assisted vaginal delivery Delivery of live evans Summary Patient presented at 38 weeks gestation in active labor tommie regularly and 4 cm. She progressed on her own to complete where artificial rupture of membranes was performed prior to pushing. Delivery Summary: Patient was placed in the dorsal lithotomy position. She had intermittent deep variable decelerations prior to amniotomy and after, however these became more pronounced with pushing. He is maintaining good variability but variable decelerations increased in duration. As she was making slow progress while pushing, discussed option of a repeat vacuum-assisted vaginal delivery. The patient was counseled on the risk of vacuum delivery. We discussed a trial of vacuum delivery with no significant descent we would proceed with section. We discussed that we would give up if no descent occurred after 2 tractions, if delivery did not occur after 4 tractions or if the vacuum detached more than twice. We discussed the risk of cephalhematoma, hemorrhage, nerve injuries, bruises, elevated bilirubin, as well as maternal issues of soft tissue injuries. We discussed that traction alone cannot deliver the baby, we can only assist maternal pushing efforts. The flexion point was identified 3 cm anterior of the posterior fontanelle. With a contraction and maternal pushing, the vaccum was applied to the green zone and with one gentle traction, the head descended and had a large crown. There was a total of one contraction and traction with no pop offs. The vacuume was removed. Upon maternal pushing the head was delivered atraumatically followed by the anterior shoulder, posterior shoulder, then the remainder of the infant's body. Nuchal cord was reduced. A female infant was delivered with APGARS of 8 at 1 minute and 9 at 5 minutes. The infant was placed on its mother's chest . After the cord finished pulsating, the umbilical cord was clamped times two and cut. The placenta delivered intact with three vessel cord. Placenta was not sent to pathology. Thirty units of Pitocin were added to the IV fluid and allowed to run freely. Uterine massage was performed until uterus was deemed firm. Upon inspection of the perineum, a second-degree midline laceration was noted. There is a brisk bleeding vessel in the area that was ligated. The rest the repair was performed in a running fashion. The posterior fourchette was edematous with a small tear. I attempted to suture this but the suture tore through. As it was not bleeding, it was managed expectantly. Upon re- inspection the patient was hemostatic. Uterus again massaged and found to be firm. Needle and sponge counts were correct. Patient was stable and allowed to recover in L&D room. Infant was stable and remained in room with mother. weight is pending at this time. scalp assessed and no abnormalities noted.
[2024-04-14] MEDS: IBUPROFEN 600 MG TABLET PO SCH (07:48)
[2024-04-14] MEDS: ACETAMINOPHEN 500 MG TABLET PO SCH (07:49)
[2024-04-14] MEDS ORDERED: LACTATED RINGERS 1,000 ML IV SCH (08:00)
--- NOTE | 2024-04-14 15:47 | PHARMACY PROGRESS NOTE ---
- Best Possible Medication History Admit Date and Time: 04/14/24 0057 Processed by: Pharmacy Medications reviewed in ED?: No Medication History completed: Yes Patient Interview: Pt unable to participate Secondary Source(s): Physician records, Pharmacy records As the person ultimately responsible for medication therapy, providers are able to order a medication from an existing home medication list in [facility] via the "Reconcile Routine" prior to Confirmation of that medication by administrative support specialist. Such practice is discouraged except when the physician, in their clinical judgment, deems that a medical need exists for a medication without regard to previous use.
[2024-04-15 08:44] VITALS: BP 112/70; O2SAT 97
--- NOTE | 2024-04-15 12:05 | Discharge Plan ---
Discharge Plan Problem Reviewed?: Yes Disposition: Home, Self Care Diet: Regular Activity Restrictions: No Restrictions Instruction Topics: Bottle Feed How To, Vaginal No Smoking: If you smoke, Please STOP! Call for help. Follow-up with: Van Sifuentes MD [Primary Care Provider] -
--- NOTE | 2024-04-15 12:07 | DISCHARGE SUMMARY ---
<Sadaf Palma - Last Filed: 04/15/24 12:29> Discharge Summary Discharge Date: 04/15/24 Discharging Provider: Dr. Gipson Code Status: Attempt Resuscitation Condition at Discharge: Stable Discharge Disposition: 01 Home, Self Care - HOSPITAL COURSE Hospital Course: Date of Admission: 04/14/2024 Date of Discharge: 04/15/2024 Diagnosis on admission: 1. 29 yo @ 38 weeks gestation 2. Active labor 3. GBS positive Diagnosis on Discharge 1. 29 yo s/p VAVD 04/14/2024 2. Second degree perineal laceration with repair. 3. Inability to void secondary to significant vulvar edema Brief History: She is a patient of [facility] who presented to clinic at 38 weeks gestation in active labor tommie regularly and 4 cm. She progressed on her own to complete where artificial rupture of membranes was performed prior to pushing. Repeat operative vaginal delivery (vacuum) secondary to distress and minimal descent with pushing. She delivered a viable male apgars 8&9 at 1&5 minutes respectively. EBL 350ml. Second degree midline laceration with repair. Vulva and perineum remained edematous into day 1. Unable to void after delivery, was straight catheterized multiple times prior to goodwin catheter placement overnight and removal this am. At this time, she has not voided since catheter removal several hours ago. Agreeable to delaying discharge until successful post catheter removal void. She has otherwise been doing well in her course. She is ambulating and tolerating a regular diet. Her pain is well controlled without narcotic management. She will be discharged to home today on day (pending void) and encouraged to continue IBU, tylenol and colace. She intends to follow up with Dr. Sifuentes in the clinic next week. She has been given precautions to call if she has any any new or worsening sx such as significant changes to mood, fevers, chills, abdominal pain, increasing bleeding, or foul smelling vaginal lochia. preeclamptic precautions reviewed as well. Patient consented to my participation in her discharge in my role as student nurse public works inspector. EDIS Gentile, Student Nurse [employer] - ALLERGIES Allergies/Adverse Reactions: Allergies Allergy/AdvReac Type Severity Reaction Status Date / Time No Known Drug Allergies Allergy Verified 09/23/22 18:05 - MEDICATIONS Home Medications: Ambulatory Orders Medication Instructions Recorded Confirmed Acetaminophen [Acetaminophen Extra 1,000 mg PO Q8H PRN #60 tablet 09/24/22 04/14/24 Strength] Docusate Sodium 100Mg Capsule 100 - 200 mg PO BID PRN #60 cap 09/24/22 04/14/24 [Colace 100Mg Capsule] No122/Iron/Folic Acid 1 each PO DAILY 04/14/24 04/14/24 [ Multi Tablet] - PHYSICAL EXAM AT DISCHARGE General Appearance: positive: No acute distress Eyes Bilateral: positive: Normal inspection Neck: positive: Nml inspection Respiratory: positive: No respiratory distress Cardiovascular: positive: Regular rate & rhythm Peripheral Pulses: positive: 2+ Abdomen: positive: Non-tender Back: positive: Nml inspection Skin: positive: Color nml Extremities: positive: Non-tender Neurologic/Psychiatric: positive: Oriented x3 - LABS Result Diagrams: 04/14/24 01:05 04/14/24 01:05 - QUALITY (Female Hip Fx Only) Was patient sent home on osteoporosis medication?: No - FOLLOW UP Follow Up: [address] Sifuentes. - TIME SPENT Time Spent in Discharge (Minutes): 20 <Kerrie Gipson - Last Filed: 04/15/24 18:32> Discharge Summary - LABS Result Diagrams: 04/14/24 01:05 04/14/24 01:05 - FOLLOW UP Follow Up: I have seen and examined patient. Agree with above.
--- NOTE | 2024-04-15 17:11 | Labor Flowsheet ---
Labor Flowsheet Datetime Report Generated by CPN: 04/15/2024 17:11 Datetime: 04/15/2024 08:29 VITAL SIGNS NBP Sys/Jeaneth/Mean (mmHg): 112 : 70 : 79 Pulse: 56 Datetime: 04/14/2024 09:01 Stage of : PAIN Pain Scale: 0 Pain Presence: None/Denies Pain Type: N/A Datetime: 04/14/2024 08:01 Respirations: 15 Datetime: 04/14/2024 07:06 Membranes Ruptured Date/Time: 04/14/2024 05:34 Datetime: 04/14/2024 06:45 SpO2 (%): 99 COMMUNICATION LaborFlag: Labor Datetime: 04/14/2024 06:17 STAGE 2 Pushing: Coached on Pushing Pushing Position: Pushing with Contractions; Pushing Lithotomy Datetime: 04/14/2024 06:00 UTERINE ACTIVITY Monitor Mode: External Frequency (min): 2-5 Quality: Strong Duration (sec): 50-120 Pattern: Normal: <= 5 Contractions in 10 Minutes Resting Tone (Palpate): Relaxed ASSESSMENT A Monitor Mode: External US FHR Baseline Rate : 145 Variability: Moderate 6-25 bpm Accelerations: 15X15 Decelerations: Early; Variable Category: Category II Datetime: 04/14/2024 05:34 VAGINAL EXAM Dilatation (cm): 10.0 Station: 1 Exam by: Membrane Status: Ruptured Membranes Rupture Method: Artificial Amniotic Fluid Color: Light Meconium Amniotic Fluid Amount: Moderate Amniotic Fluid Odor: Normal Datetime: 04/14/2024 05:30 Actions for Decelerations: Side to Side; IV Bolus; Sterile Vaginal Exam; Provider Notified Datetime: 04/14/2024 04:30 Monitor Interventions for UA: [place] Adjusted Datetime: 04/14/2024 03:00 Patient Care Comments: report given to c timmy, care relinquished Datetime: 04/14/2024 02:52 Effacement (%): 90 Vaginal Bleeding: Normal Show Cervix, Consistency: Soft Cervix, Position: Anterior PATIENT CARE I/O Interventions: Lam Cath Inserted Datetime: 04/14/2024 02:29 Epidural Procedure Other: Pump Started Datetime: 04/14/2024 02:23 Epidural Procedure: Loading Dose Datetime: 04/14/2024 02:09 PROCEDURE TIME OUT Procedure Verify: Correct Patient Identity; Correct Side and Site are Marked; Accurate Procedure Co nsent Form; Agreement on Procedure to be Done; Correct Patient Position; Relevant Images and Results are Properly Labeled and Displayed; Safety Precautions Based on Patient History or Medication Use Datetime: 04/14/2024 01:45 ANESTHESIA Anesthesia Plans: Epidural Anesthesia Comments: Alanis Margret [employer] notified pt requesting epidural
== END 2024-04-15 12:00 | disposition home or self-care (01) | DRG 807 ==
LOC: WFO 23:34 → FBP 23:35 → WFO 04-14 00:24 → FBP 04-14 00:57
PROVIDERS: ADMIT Obstetrics & Gynecology; ATTEND Obstetrics & Gynecology
PROC: 10D07Z6 Extraction of Products of Conception, Vacuum, Via Natural or Artificial Opening (ICD-10-PCS; principal; 2024-04-14)
PROC: 0KQM0ZZ Repair Perineum Muscle, Open Approach (ICD-10-PCS; 2024-04-14)
PROC: 10907ZC Drainage of Amniotic Fluid, Therapeutic from Products of Conception, Via Natural or Artificial Opening (ICD-10-PCS; 2024-04-14)
DX: O99.824 Streptococcus B carrier state complicating childbirth (principal); Z37.0 Single live birth; Z3A.38 38 weeks gestation of pregnancy; O70.1 Second degree perineal laceration during delivery; O90.89 Other complications of the puerperium, not elsewhere classified; R33.9 Retention of urine, unspecified; O76 Abnormality in fetal heart rate and rhythm complicating labor and delivery
CPT/HCPCS: 59025; 59409; 80053; 85025; 86850; 86900; 86901; 99213; A9270; J7120; 99215